=== PATIENT | male | born 1980 | race Caucasian/White ===

== ENCOUNTER 2021-04-05 16:40 | Inpatient (IN) | payer MEDICAID, SELFPAY ==
[2021-04-05] VITALS (9 sets, daily range): BP systolic 134–141; BP diastolic 87–96; PULSE 90–118; RESP 16–18; TEMP 36.4–37.3; O2SAT 93–99; BMI 25.6; BMI 25.3
--- NOTE | 2021-04-05 17:00 | EDS_ITS ---
HPI History of Present Illness Chief Complaint: Substance Abuse Detail of Chief Complaint: Requesting detox from alcohol Informant: patient Narrative Narrative: Patient presents to the emergency department stating that he is an alcoholic and would like to detox from alcohol. Patient states that his last alcoholic drink was around 5 AM. Patient feels shaky and sweaty and has had multiple episodes of vomiting. He denies any abdominal pain. Patient states that his last detox was in [place] about a month ago. Patient denies any illicit drug use. He does use chewing tobacco. Patient otherwise has no medical history. Patient states that he normally drinks about 18-20 drinks per day and it can be liquor or beer. Prior similar symptoms: Yes [facility] Medical History (Updated 04/05/21 @ 18:[address] Lopez English, ) Alcoholism Home Medications NK 04/05/21 [History Last Taken Unknown] Allergy/AdvReac Type Severity Reaction Status Date / Time No Known Allergies Allergy Verified 04/05/21 16:41 Social History Smoking Status: Never smoker ROS [facility] ED Constitutional Constitutional ED: Reports systems reviewed and no addt'l complaints, except as documented; Denies body ache(s), change in weight or chills Eyes Eyes: Denies acute decrease in peripheral vision, change in vision, double vision or loss of vision ENT ENT ED: Reports none; Denies ear pain, lip swelling, loss taste/smell, neck pain, otalgia or sore throat Cardiovascular Cardiovascular: Reports none; Denies abdominal pain, chest pain with activity, leg edema, lightheadedness, palpitations, rapid heart rate or syncope Respiratory/Chest Respiratory/Chest: Reports none; Denies change in mental status, dry cough, dyspnea, hemoptysis, shortness of breath at rest or shortness of breath with exertion Gastrointestinal Gastrointestinal: Reports none, nausea and vomiting; Denies abdominal pain, change in stool character, diarrhea, hematemesis, hematochezia, melena or rectal bleeding Genitourinary Genitourinary ED: Reports none; Denies abdominal discomfort, anuria, dysuria, genital pain or polyuria Musculoskeletal Musculoskeletal: Reports none; Denies arthralgias, back pain, difficulty walking, extremity pain, muscle weakness or myalgias Integumentary Reports none; Denies abscess or rash Neurologic Neurologic: Reports none; Denies abnormal gait, confusion, focal weakness, frequent falls, headache(s), loss of vision, numbness, paresthesias, radicular pain, vertigo or weakness Psychiatric Psychiatric: Reports systems reviewed and no addt'l complaints, except as docum ented and none; Denies behavioral changes, confusion, difficulty concentrating, hallucinations, suicidal ideation, tactile hallucinations or visual hallucinations Endocrine Endocrinology: Denies none, cold intolerance, excessive sweating, fatigue or heat intolerance Hematologic/Lymphatic Hematologic/Lymphatic: Reports none; Denies anemia, easy bleeding or easy bruising Allergic/Immunologic Allergic/Immunologic ED: Denies as per HPI, none, lip swelling, mouth swelling, throat swelling, tongue swelling or hives EXAM Physical Exam Const Vital Signs: 04/05/21 16:42 Temperature 97.6 F L Temperature Source Temporal Pulse Rate 118 H Respiratory Rate 18 Blood Pressure 139/96 H Blood Pressure Mean 110 Pulse Ox 93 Oxygen Delivery Method Room Air Positive well nourished and well developed General Appearance ED: well developed and NAD HEENT Reports TM's clear and moist mucous membranes normocephalic and atraumatic; Negative for trauma or tenderness Tympanic Membrane ED: Yes TM's clear Eyes PERRL and EOMs intact bilaterally General Eye ED: Negative for pale conjunctiva or scleral icterus Neck no lymphadenopathy, supple and no JVD General: Negative for tenderness Chest Wall inspection of chest normal and palpation of chest normal Chest: Negative for tenderness Resp normal respiratory effort and clear to auscultation bilaterally Effort and Inspection: Negative for respiratory distress or pain with movement Auscultation: Negative for rhonchi, wheezes or diminished lung sounds Cardio regular rhythm, S1 normal heart sound, S2 normal heart sound and no murmurs Rate: tachycardic Peripheral Pulses: pulses 2+ throughout GI normal to inspection, nondistended, normoactive bowel sounds, soft to palpation, non-tender, non-distended and no masses Back/Spine no CVA tenderness and no thoracic nor lumbar tenderness Extremity normal to inspection General Extremety ED: Negative for edema General Extremity: Negative for edema Neuro oriented x3, CN's II-XII intact bilaterally, no sensory deficits noted and gait normal Sensorium / Orientation: awake, alert, oriented to person, oriented to place and oriented to time Motor Exam: strength 5/5 throughout and strength abnormal Psych mental status grossly normal Skin no rashes or lesions noted and no wounds MDM MDM MDM Narrative Medical decision making narrative: Patient will be discussed with hospitalist evaluate for admission for alcohol withdrawal and for alcohol detox. Lab Data Attestation: I reviewed the patient's lab results. Labs: Laboratory Results - last 24 hr 04/05/21 04/05/21 04/05/21 17:30 17:30 17:30 WBC 16.3 H RBC 4.99 Hgb 15.5 Hct 43.5 MCV 87.2 MCH 31.1 MCHC 35.6 RDW Std Deviation 45.3 H RDW Coeff of Miguel 14.6 Plt Count 268 MPV 10.4 Immature Gran % (Auto) 0.600 Neut % (Auto) 78.4 H Lymph % (Auto) 10.5 L [place] % (Auto) 9.9 Eos % (Auto) 0.2 Baso % (Auto) 0.4 Absolute Neuts (auto) 12.8 H Absolute Lymphs (auto) 1.72 Nucleated RBC % 0 Differential Comment SCANNED Diff Path Review May foll Sodium 134 L Potassium 4.0 Chloride 96 L Carbon Dioxide 29.0 Anion Gap 9 BUN 14 Creatinine 1.03 Estim Creat Clear Calc 87.75 Est GFR (MDRD) Af Amer 104 Est GFR (MDRD) Non-Af 86 BUN/Creatinine Ratio 13.6 Glucose 97 Calcium 8.9 Total Bilirubin 2.50 H AST 17 ALT 26 Alkaline Phosphatase 60 Total Protein 7.3 Albumin 4.1 Globulin 3.2 Albumin/Globulin Ratio 1.3 Ur Drug Screen Comment Ethyl Alcohol < 3.0 04/05/21 17:55 WBC RBC Hgb Hct MCV MCH MCHC RDW Std Deviation RDW Coeff of Miguel Plt Count MPV Immature Gran % (Auto) Neut % (Auto) Lymph % (Auto) [place] % (Auto) Eos % (Auto) Baso % (Auto) Absolute Neuts (auto) Absolute Lymphs (auto) Nucleated RBC % Differential Comment Diff Path Review Sodium Potassium Chloride Carbon Dioxide Anion Gap BUN Creatinine Estim Creat Clear Calc Est GFR (MDRD) Af Amer Est GFR (MDRD) Non-Af BUN/Creatinine Ratio Glucose Calcium Total Bilirubin AST ALT Alkaline Phosphatase Total Protein Albumin Globulin Albumin/Globulin Ratio Ur Drug Screen Comment Ethyl Alcohol Discharge Plan Triage Chief Complaint: Substance Abuse ED Provider: Ungur,Remus Dx/Rx/DC Orders Clinical Impression: Alcohol withdrawal, Withdrawn from alcohol detoxification program Prescriptions: No Action NK RF: 0 Primary Care Provider: Care Physician,No Primary Referrals: Care Physician,No Primary [Primary Care Provider] - Disposition Disposition: Acute Care Hospital [facility]
[2021-04-05] MEDS: 0.9% Normal Saline 1,000 ML 1000 ML IV (17:28)
[2021-04-05] MEDS: Ondansetron 4 MG/2 ML Vial IV ×2 (17:28→20:16)
[2021-04-05] MEDS: chlordiazePOXIDE 25 MG Capsule PO (17:39)
[2021-04-05 18:05] LABS: ALB/GLOB Ratio 1.3 RATIO (0.9-2.4); AST(SGOT) 17 U/L (15-37); Alanine Aminotransfer ALT/SGPT 26 U/L (16-61); Albumin, Serum 4.1 g/dL (3.2-5.0); Alkaline Phosphatase 60 U/L (45-117); Anion Gap 9 (5-15); BUN 14 mg/dL (7-18); BUN/Creat Ratio 13.6 RATIO (10-20); Calcium,Total 8.9 mg/dL (8.5-10.1); Chloride 96 mmol/L (98-107); Creatinine, Serum 1.03 mg/dL (0.70-1.30); EST Glomerular Filtration Rate 86 mL/min (>60); Est Glom Filt Rate - Afr Amer 104 mL/min (>60); Estimated Creatinine Clearance 87.75 ml/min; Globulin 3.2 g/dL (2.2-4.2); Glucose 97 mg/dL (74-106); Protein, Total 7.3 g/dL (6.4-8.2); Sodium Level 134 mmol/L (136-145)
[2021-04-05 18:10] LABS: Absolute Lymphocyte Count 1.72 X10^3/uL (0.83-4.51); Absolute Neutrophil Count 12.8 X10^3/uL (2.0-7.7); Basophil# 0.06 X10^3/uL; Basophil% 0.4 % (0-1); Eosinophil# 0.04 X10^3/uL; Eosinophils% 0.2 % (0-5); Hematocrit 43.5 % (40-54); Hemoglobin 15.5 g/dL (13.0-16.5); Lymphocyte # 1.72 X10^3/ul (0.83-4.51); Lymphocyte % 10.5 % (19-41); Mean Corp Hgb Conc 35.6 g/dL (32-36); Mean Corpuscular Hgb 31.1 pg (27.0-32.0); Mean Corpuscular Volume 87.2 fL (80-94); Mean Platelet Vol. 10.4 fl (6.2-12.0); Monocyte# 1.61 X10^3/uL; Monocyte% 9.9 % (0-10); NRBC Flagged by Analyzer 0 % (0-5); Neutrophil # 12.79 X10^3/uL (2.7-7.7); Neutrophil % 78.4 % (47-70); POSITIVE DIFFERENTIAL YES; Platelet Count 268 K/mm3 (150-450); RBC Distribution Width CV 14.6 % (11.6-14.6); RBC Distribution Width SD 45.3 fl (35.1-43.9); Red Blood Count 4.99 M/mm3 (4.6-6.2); White Blood Count 16.3 K/mm3 (4.4-11.0)
[2021-04-05 18:12] LABS: Differential Indicated SCAN CRITERIA MET
[2021-04-05 18:17] LABS: Alcohol, Blood (Medical)-Serum < 3.0 mg/dL
[2021-04-05 18:36] LABS: Differential Comment SCANNED
[2021-04-05 18:52] LABS: Amphetamine Urine VISTA NEGATIVE (<1000 ng/mL); Barbiturate Urine VISTA POSITIVE (< 200 ng/mL); Benzodiazepine Urine VISTA NEGATIVE (< 200 ng/mL); Cocaine Urine VISTA NEGATIVE (< 300 ng/mL); Ecstacy Urine VISTA NEGATIVE (< 500 ng/mL); Methadone Urine VISTA NEGATIVE (< 300 ng/mL); PCP Urine VISTA NEGATIVE (< 25 ng/mL); THC Urine VISTA NEGATIVE (< 50 ng/mL); Vista UDS pH Range 7
[2021-04-05] MEDS: Phenobarbital 32.4 MG Tablet 64.8 MG PO ×2 (20:13→23:30)
[2021-04-05] MEDS: Gabapentin 300 MG Capsule PO (20:13)
[2021-04-05] MEDS: Dicyclomine 10 MG Capsule 20 MG PO (20:13)
[2021-04-05] MEDS: Lactated Ringers 1,000 ML 75 ML IV (20:21)
--- NOTE | 2021-04-05 21:11 | PCM.HP.STD ---
HPI - General General Date of Admission: 04/05/21 HPI Narrative BARBARA HORTON, is a 40 M who presented to the emergency department [facility] on 04/05/2021 with a chief complaint of acute alcohol withdrawal. Per discussion with the patient he states that he has been through detox several times with the most recent time being at one of the [facility] a week or 2 ago. He states he typically drinks 18 drinks per day, volume was unspecified. He reports that any type of alcohol that is available this his drink of choice. His last drink was this morning at 5 AM. He is currently experiencing tremor, diaphoresis, and has had several episodes of vomiting. He denies any other illicit drug use. He does report utilization of chewing tobacco of approximately 1 can/day. He was mildly hypertensive and tachycardic in the emergency department but his vitals were otherwise stable. He had a mild white count elevation at 16.3. His BMP showed mild hyponatremia at 134 and mild hypochloremia at 96. His total bilirubin was elevated at 2.50 but his LFTs were within normal limits including his alkaline phosphatase. His alcohol level was negative. And his tox screen was positive for barbiturates. He does indicate he was detoxed with phenobarbital at his last admission. [facility] Medical History (Updated 04/05/21 @ 21:[address] Piper Malik DO) Alcohol abuse Alcoholism Anxiety Depression Kidney stones Home Medications NK 04/05/21 [History Last Taken Unknown] Allergy/AdvReac Type Severity Reaction Status Date / Time No Known Allergies Allergy Verified 04/05/21 16:41 Social History Smoking Status: Never smoker ROS Review of Systems ROS Unobtainable: Denies due to encephalopathy, due to endotracheal tube, due to mental condition, due to mental status or other Constitutional Constitutional: Denies anorexia, change in weight, chills, fatigue, fever(s), malaise, night sweats, weakness or other Eyes Eyes: Denies blurry vision, change in eye color, change in vision, discharge from eye(s), double vision, erythema, eye pain, loss of vision or other ENT HEENT: Denies abnormal hearing, dysphagia, ear pain, epistaxis, headache(s), hearing loss, nasal congestion, nasal discharge, post nasal drip, sinus pressure, sore throat or other Cardiovascular Cardiovascular: Reports rapid heart rate; Denies chest pain, claudication, dyspnea on exertion, edema, lightheadedness, orthopnea, palpitations, paroxysmal nocturnal dyspnea, syncope or other Respiratory/Chest Respiratory/Chest: Denies cough, dyspnea, excessive phlegm production, hemoptysis, productive cough, shortness of breath at rest, shortness of breath with exertion, wheezing or other Gastrointestinal Gastrointestinal: Reports nausea and vomiting; Denies abdominal pain, coffee ground emesis, constipation, diarrhea, dyspepsia, hematemesis, hematochezia, loose stools, melena or other Genitourinary Genitourinary: Denies burning urination, difficulty urinating, dysuria, hematuria, nocturia, urinary frequency, urinary hesitancy, urinary incontinence, urinary urgency or other Musculoskeletal Musculoskeletal: Denies arthralgias, back pain, joint pain, joint stiffness, joint swelling, myalgias, neck pain or other Neurologic Neurologic: Reports tremor(s); Denies abnormal gait, abnormal speech, confusion, disequilibrium, dizziness, focal weakness, headache(s), numbness, paresthesias, seizure-like activity, seizures, syncope, tingling or other Psychiatric Psychiatric: Reports anxiety and depression; Denies homicidal ideation or suicidal ideation Endocrine Endocrinology: Denies change in body appearance, cold intolerance, excessive sweating, heat intolerance, polydipsia, polyuria or other Hematologic/Lymphatic Hematologic/Lymphatic: Denies anemia, easy bleeding, easy bruising, lymphadenopathy or other Allergic/Immunologic Allergic/Immunologic: Denies rhinitis, hives, eczemia, asthma or other Vital Signs Vital Signs Vital Signs: 04/05/21 16:42 04/05/21 18:54 04/05/21 19:53 Temperature 97.6 F L 98.9 F Temperature Source Temporal Oral Pulse Rate 118 H 94 111 H Respiratory Rate 18 16 16 Respiratory Effort Respiratory Depth Respiratory Pattern Blood Pressure 139/96 H 134/87 H 135/95 H Blood Pressure Mean 110 102 108 Blood Pressure Source Monitor Blood Pressure Position Sitting Blood Pressure Location Right Arm Pulse Ox 93 99 97 Oxygen Delivery Method Room Air Room Air 04/05/21 20:03 04/05/21 20:30 04/05/21 20:40 Temperature 98.9 F 98.9 F Temperature Source Oral Oral Pulse Rate 111 H 111 H 111 H Respiratory Rate 16 16 16 Respiratory Effort Normal Non-Labored Respiratory Depth Normal Respiratory Pattern Normal Blood Pressure 135/95 H 135/95 H Blood Pressure Mean 108 108 Blood Pressure Source Monitor Monitor Blood Pressure Position Sitting Sitting Blood Pressure Location Right Arm Right Arm Pulse Ox 97 97 97 Oxygen Delivery Method Room Air Room Air Room Air Physical Exam Const alert, oriented x3, no apparent distress, average body habitus, healthy appearing and well nourished General Appearance: cooperative; Negative for uncooperative Orientation / Consciousness: Negative for confused, disoriented or lethargic HEENT normocephalic, head/scalp atraumatic, hearing grossly normal bilaterally and oropharynx normal; Negative for moist oral mucous membranes HEENT Narrative: Dry mucous membranes Mouth: moist mucous membranes abnormal Eyes Negative for PERRL, EOMs intact bilaterally or conjunctivae normal Neck No no lymphadenopathy, No supple, No no JVD and No no carotid bruits Resp normal respiratory effort, no retractions, no use of accessory muscles and clear to auscultation bilaterally Auscultation: Negative for crackles, rales, rhonchi or wheezes Cardio regular rhythm, S1 normal heart sound, S2 normal heart sound, no murmurs, no rub, no gallops, no clicks and no JVD Cardio Narrative: Tachycardia-mild GI normal to inspection, nondistended, normoactive bowel sounds, soft to palpation, non-tender and non-distended; Negative for hepatosplenomegaly Auscultation: Negative for hyperactive bowel sounds or hypoactive bowel sounds Palpation: Negative for tender, guarding or hernia Extremity normal to inspection and no clubbing, cyanosis or edema Peripheral Pulses: Yes pulses 2+ throughout Skin no rashes or lesions noted Neuro oriented x3 and CN's II-XII intact bilaterally Neuro Narrative: Mild tremor Sensorium / Orientation: awake, alert, oriented to person, oriented to place and oriented to time Speech: speech normal Psych affect normal Mood & Affect: anxious; Negative for depressed Lab / Micro Data Attestation: I reviewed the patient's lab results. Result Diagrams: 04/05/21 17:30 04/05/21 17:30 Labs: Laboratory Results - last 24 hr 04/05/21 04/05/21 04/05/21 17:30 17:30 17:30 WBC 16.3 H RBC 4.99 Hgb 15.5 Hct 43.5 MCV 87.2 MCH 31.1 MCHC 35.6 RDW Std Deviation 45.3 H RDW Coeff of Miguel 14.6 Plt Count 268 MPV 10.4 Immature Gran % (Auto) 0.600 Neut % (Auto) 78.4 H Lymph % (Auto) 10.5 L [place] % (Auto) 9.9 Eos % (Auto) 0.2 Baso % (Auto) 0.4 Absolute Neuts (auto) 12.8 H Absolute Lymphs (auto) 1.72 Nucleated RBC % 0 Differential Comment SCANNED Diff Path Review May foll Sodium 134 L Potassium 4.0 Chloride 96 L Carbon Dioxide 29.0 Anion Gap 9 BUN 14 Creatinine 1.03 Estim Creat Clear Calc 87.75 Est GFR (MDRD) Af Amer 104 Est GFR (MDRD) Non-Af 86 BUN/Creatinine Ratio 13.6 Glucose 97 Calcium 8.9 Total Bilirubin 2.50 H AST 17 ALT 26 Alkaline Phosphatase 60 Total Protein 7.3 Albumin 4.1 Globulin 3.2 Albumin/Globulin Ratio 1.3 Urine Opiates Screen Urine Methadone Screen Ur Barbiturates Screen Ur Phencyclidine Scrn Ur Amphetamines Screen U Methamphetamin-MDMA U Benzodiazepines Scrn Urine Cocaine Screen U Cannabinoids Screen Ur Drug Screen Comment Ethyl Alcohol < 3.0 04/05/21 17:55 WBC RBC Hgb Hct MCV MCH MCHC RDW Std Deviation RDW Coeff of Miguel Plt Count MPV Immature Gran % (Auto) Neut % (Auto) Lymph % (Auto) [place] % (Auto) Eos % (Auto) Baso % (Auto) Absolute Neuts (auto) Absolute Lymphs (auto) Nucleated RBC % Differential Comment Diff Path Review Sodium Potassium Chloride Carbon Dioxide Anion Gap BUN Creatinine Estim Creat Clear Calc Est GFR (MDRD) Af Amer Est GFR (MDRD) Non-Af BUN/Creatinine Ratio Glucose Calcium Total Bilirubin AST ALT Alkaline Phosphatase Total Protein Albumin Globulin Albumin/Globulin Ratio Urine Opiates Screen NEGATIVE Urine Methadone Screen NEGATIVE Ur Barbiturates Screen POSITIVE H Ur Phencyclidine Scrn NEGATIVE Ur Amphetamines Screen NEGATIVE U Methamphetamin-MDMA NEGATIVE U Benzodiazepines Scrn NEGATIVE Urine Cocaine Screen NEGATIVE U Cannabinoids Screen NEGATIVE Ur Drug Screen Comment Ethyl Alcohol Assessment & Plan Assessment/Plan (1) Alcohol withdrawal: (2) Hyperbilirubinemia: (3) Hyponatremia: (4) Tobacco abuse: (5) Leukocytosis: (6) Anxiety: PLAN: Acute alcohol withdrawal -Phenobarb taper -Supportive medications -Thiamine and folate -LR at 75 cc/h x 1 bag -Consult 180 Hyperbilirubinemia -mild -Suspect related to alcohol abuse -Repeat in a.m. Leukocytosis -Suspect reactive -Repeat CBC in a.m. Hyponatremia -Appears to be hypovolemic hyponatremia given nausea and vomiting -IV fluids -BMP in a.m. Depression/anxiety -Patient is not on any chronic medications for this -Follow-up with counseling/psychiatry as an outpatient -Suspect patient is self-medicating with alcohol Tobacco abuse -Patient use chewing tobacco-> approximately 1 can/day -Patient denies needs for supplementation DVT prophylaxis -Low risk -Early ambulation protocol CODE STATUS -Full code Visit Charges Inpatient E&M: 17522 Init Hosp L2
[2021-04-05] MEDS: LORazepam 1 MG Tablet 2 MG PO (23:49)
[2021-04-06] VITALS (13 sets, daily range): BP systolic 117–147; BP diastolic 79–98; PULSE 71–107; RESP 16–18; TEMP 36.6–37.5; O2SAT 96–100
[2021-04-06] MEDS: traZODone 50 MG Tablet PO (00:04)
[2021-04-06] MEDS: Acetaminophen 500 MG Tablet PO ×2 (00:04→07:13)
[2021-04-06 06:50] LABS: Basophil# 0.04 X10^3/uL; Basophil% 0.6 % (0-1); Eosinophil# 0.12 X10^3/uL; Eosinophils% 1.7 % (0-5); Hematocrit 39.3 % (40-54); Hemoglobin 13.7 g/dL (13.0-16.5); Lymphocyte % 28.9 % (19-41); Mean Corp Hgb Conc 34.9 g/dL (32-36); Mean Corpuscular Hgb 31.3 pg (27.0-32.0); Mean Corpuscular Volume 89.7 fL (80-94); Mean Platelet Vol. 10.7 fl (6.2-12.0); Monocyte# 0.75 X10^3/uL; Monocyte% 10.9 % (0-10); NRBC Flagged by Analyzer 0 % (0-5); Neutrophil # 3.97 X10^3/uL (2.7-7.7); Neutrophil % 57.5 % (47-70); Platelet Count 186 K/mm3 (150-450); RBC Distribution Width CV 14.7 % (11.6-14.6); RBC Distribution Width SD 47.7 fl (35.1-43.9); Red Blood Count 4.38 M/mm3 (4.6-6.2); White Blood Count 6.9 K/mm3 (4.4-11.0)
[2021-04-06] MEDS: Phenobarbital 32.4 MG Tablet 64.8 MG PO ×4 (07:10→19:15)
[2021-04-06] MEDS: Thiamine Hydrochloride 100 MG Tablet PO (07:33)
[2021-04-06] MEDS: Folic Acid 1 MG Tablet PO (07:33)
--- NOTE | 2021-04-06 10:49 | NURSING ---
Discussed with pt the possible options. Tearful and desiring help.
--- NOTE | 2021-04-06 11:09 | PN.HOSP_ITS ---
Subjective Subjective Patient admitted with alcohol withdrawal. He drinks 18; 12 ounces bottle of beer along with liquor and wine. He also uses parts every 2 years just to know it is feeling. Patient states he had 10 times hematemesis and was told from esophageal/gastric origin. He had EGD about 5 years ago and subjectively speaks no varices found. He denies ascites, jaundice, hepatic encephalopathy or other chronic stigmata of liver disease Objective Data Objective Data Vital Signs: Vital Signs Temp Pulse Resp BP Pulse Ox 99.0 F 107 H 18 130/85 H 97 04/06/21 10:00 04/06/21 10:00 04/06/21 10:00 04/06/21 10:00 04/06/21 10:00 Oxygen Delivery Method Room Air Weight: 157 lb 10.088 oz Body Mass Index (BMI) 25.3 Intake & Output: Intake and Output for Last 24 Hours 04/04/21 04/05/21 04/06/21 23:59 23:59 23:59 Intake Total 1200 / 1200 1148.75 / 1148.75 Balance 1200 / 1200 1148.75 / 1148.75 Lab / Micro Data Result Diagrams: 04/06/21 05:46 04/05/21 17:30 Labs: Laboratory Results - last 24 hr 04/05/21 04/05/21 04/05/21 17:30 17:30 17:30 WBC 16.3 H RBC 4.99 Hgb 15.5 Hct 43.5 MCV 87.2 MCH 31.1 MCHC 35.6 RDW Std Deviation 45.3 H RDW Coeff of Miguel 14.6 Plt Count 268 MPV 10.4 Immature Gran % (Auto) 0.600 Neut % (Auto) 78.4 H Lymph % (Auto) 10.5 L [place] % (Auto) 9.9 Eos % (Auto) 0.2 Baso % (Auto) 0.4 Absolute Neuts (auto) 12.8 H Absolute Lymphs (auto) 1.72 Nucleated RBC % 0 Differential Comment SCANNED Diff Path Review May foll Sodium 134 L Potassium 4.0 Chloride 96 L Carbon Dioxide 29.0 Anion Gap 9 BUN 14 Creatinine 1.03 Estim Creat Clear Calc 87.75 Est GFR (MDRD) Af Amer 104 Est GFR (MDRD) Non-Af 86 BUN/Creatinine Ratio 13.6 Glucose 97 Calcium 8.9 Total Bilirubin 2.50 H AST 17 ALT 26 Alkaline Phosphatase 60 Total Protein 7.3 Albumin 4.1 Globulin 3.2 Albumin/Globulin Ratio 1.3 Urine Opiates Screen Urine Methadone Screen Ur Barbiturates Screen Ur Phencyclidine Scrn Ur Amphetamines Screen U Methamphetamin-MDMA U Benzodiazepines Scrn Urine Cocaine Screen U Cannabinoids Screen Ur Drug Screen Comment Ethyl Alcohol < 3.0 04/05/21 04/06/21 17:55 05:46 WBC 6.9 RBC 4.38 L Hgb 13.7 Hct 39.3 L MCV 89.7 MCH 31.3 MCHC 34.9 RDW Std Deviation 47.7 H RDW Coeff of Miguel 14.7 H Plt Count 186 MPV 10.7 Immature Gran % (Auto) 0.400 Neut % (Auto) 57.5 Lymph % (Auto) 28.9 [place] % (Auto) 10.9 H Eos % (Auto) 1.7 Baso % (Auto) 0.6 Absolute Neuts (auto) 4.0 Absolute Lymphs (auto) 2.00 Nucleated RBC % 0 Differential Comment Diff Path Review Sodium Potassium Chloride Carbon Dioxide Anion Gap BUN Creatinine Estim Creat Clear Calc Est GFR (MDRD) Af Amer Est GFR (MDRD) Non-Af BUN/Creatinine Ratio Glucose Calcium Total Bilirubin AST ALT Alkaline Phosphatase Total Protein Albumin Globulin Albumin/Globulin Ratio Urine Opiates Screen NEGATIVE Urine Methadone Screen NEGATIVE Ur Barbiturates Screen POSITIVE H Ur Phencyclidine Scrn NEGATIVE Ur Amphetamines Screen NEGATIVE U Methamphetamin-MDMA NEGATIVE U Benzodiazepines Scrn NEGATIVE Urine Cocaine Screen NEGATIVE U Cannabinoids Screen NEGATIVE Ur Drug Screen Comment Ethyl Alcohol Physical Exam Narrative General: Alert, Oriented x3, Cooperative HEENT: Atraumatic, PERRLA, EOMI, Normocephalic Oral: No Gingival or Mucosal Lesions/ Ulcerations Neck: Supple, No JVD, Negative Carotid Bruits Lungs: Air entry equal in bilateral lung bases. No crepitation/rhonchi Cardiovascular: Regular rate, Regular Rhythm, Normal S1, Normal S2, No murmurs Abdomen: Bowel Sounds Present, Soft, Non Tender, Non-Distended. Liver not enlarged. Spleen not palpable. No ascites on exam : No renal angle tenderness. No suprapubic tenderness. Extremities: No edema, Capillary Refill Less than 3 Seconds Skin: No rashes, No breakdown Musculoskeletal: No Tenderness to Palpation of Joints or Extremities Neurological: Cranial nerves II-XII grossly intact, Deep Tendon Reflexes 2+/4 and Symmetrical, Neuro grossly intact Psych/Mental Status: Normal Affect, Appropriate. Assessment & Plan Assessment/Plan (1) Alcohol withdrawal: (2) Hyperbilirubinemia: (3) Hyponatremia: (4) Tobacco abuse: (5) Leukocytosis: (6) Anxiety: PLAN: 1. Acute alcohol withdrawal: Patient is admitted to [facility] floor. On phenobarbital protocol along with other supportive medications. Thiamine and folic acid. Patient completed 1 L of R[place] lactate. Monitor is being consulted. 2. Chronic alcohol use and tolerance since age of 16 with hyperbilirubinemia: Total bili is 2.5. Monitor liver function and GGT tomorrow a.m. right upper quadrant sonogram ordered for tomorrow a.m. 3. Leukocytosis: Reactive. Repeat CBC shows normal WBC count. 4. Hyponatremia: Multifactorial probably from hypovolemic, hypotonic from nausea and vomiting, low solute intake of chronic alcohol use, beer portomania. 5. Depression/anxiety: Patient not on antidepression medication. 6. Chronic chewing tobacco use and marijuana use: Advised cessation. VT prophylaxis: Low risk early ambulation encouraged. Visit Charges Inpatient E&M: 87166 Subs Hosp L2
[2021-04-06] MEDS: Gabapentin 300 MG Capsule PO (11:37)
[2021-04-06] MEDS: LORazepam 1 MG Tablet 2 MG PO ×2 (14:07→20:28)
[2021-04-07] VITALS (10 sets, daily range): BP systolic 114–135; BP diastolic 72–98; PULSE 66–104; RESP 18–20; TEMP 36.5–37.3; O2SAT 97–100
[2021-04-07] MEDS: Phenobarbital 32.4 MG Tablet 64.8 MG PO ×7 (00:09→23:57)
[2021-04-07] MEDS: traZODone 50 MG Tablet PO ×2 (00:09→23:57)
[2021-04-07] MEDS: Gabapentin 300 MG Capsule PO ×2 (00:09→17:11)
--- NOTE | 2021-04-07 05:55 | US_ITS ---
STUDY: ABDOMINAL ULTRASOUND - RIGHT UPPER QUADRANT REASON FOR VISIT: Male, 40 years old Alcoholic hepatitis with total bilirubin 2.5 TECHNIQUE: Ultrasound evaluation of the right upper quadrant was performed with real-time and static agosto-scale imaging. TECHNICAL QUALITY: Adequate. COMPARISON: None. FINDINGS: Liver: The liver measures 15.2 cm. There is normal echogenicity of the liver. The bile ducts are within normal limits. There is hepatic color flow. The direction of portal flow is hepatopetal. There is no demonstrated mass lesion. Gallbladder: Normal distended gallbladder. The gallbladder wall measures 2.0 mm. There is a negative sonographic Moreno''s sign. There is no pericholecystic fluid. There are multiple echogenic structures within the gallbladder, consistent with multiple gallstones. Common Bile Duct (C.B.D.): The common bile duct measures 4 mm. Pancreas: Normal size of the head, body of the pancreas. The tail portion is obscured due to overlying bowel gas. There is increased echogenicity of the pancreas. There is no demonstrated pancreatic mass or cyst. Right Kidney: Normal size of the right kidney. The right kidney measures 11 cm x 6.2 cm x 4.6 cm. Normal renal cortex. The right cortex measures 1.2 cm. There is no demonstrated renal mass or cyst. There is no right hydronephrosis. US/Liver IMPRESSION: Multiple gallstones. Electronically Signed: Sidney Biswas MD at 12:32 EDT , Service support ,
[2021-04-07 06:34] LABS: AST(SGOT) 15 U/L (15-37); Alanine Aminotransfer ALT/SGPT 21 U/L (16-61); Albumin, Serum 3.2 g/dL (3.2-5.0); Alkaline Phosphatase 59 U/L (45-117); Anion Gap 6 (5-15); BUN 16 mg/dL (7-18); BUN/Creat Ratio 21.7 RATIO (10-20); Bilirubin, Direct 0.43 mg/dL (0.00-0.30); Chloride 103 mmol/L (98-107); Creatinine, Serum 0.74 mg/dL (0.70-1.30); EST Glomerular Filtration Rate 125 mL/min (>60); Est Glom Filt Rate - Afr Amer 152 mL/min (>60); Estimated Creatinine Clearance 122.14 ml/min; GGTP 72 U/L (15-85); Globulin 2.6 g/dL (2.2-4.2); Glucose 90 mg/dL (74-106); Potassium 4.4 mmol/L (3.5-5.1); Protein, Total 5.8 g/dL (6.4-8.2); Sodium Level 137 mmol/L (136-145)
[2021-04-07] MEDS: Folic Acid 1 MG Tablet PO (10:18)
[2021-04-07] MEDS: Thiamine Hydrochloride 100 MG Tablet PO (10:18)
--- NOTE | 2021-04-07 11:17 | ADDICTION ---
This editorial writer met with PT to conduct ASAM, MSE, AUDIT assessments and to plan for d/c. All assessments completed, faxed to [facility] and placed in PT's chart. D/C planning not completed as PT requested time to think about his options. This editorial writer will f/u with PT to finalize d/c plan on 04/06/21. PT amiable.
--- NOTE | 2021-04-07 11:50 | CASEMGMT ---
Social Work Note Pt is listed as self-pay. MARICRUZ spoke with Daysi from [facility], pt is not able to use funds for detox as pt is not a resident of [facility]. SW in to speak with pt. MARICRUZ introduced self and role at [facility]. Pt confirms that he currently doesn't have insurance. Pt states he was working for a company and then that insurance lapse, the company got new insurance but he no longer works for that company. 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 Pt states he thought about applying for Medicaid but hasn't yet. Pt denied any financial concerns at this time. MARICRUZ provided pt with Medicaid Application and contact information for [facility] so pt is able to contact them regarding Medicaid. Pt states he will just drop off the Medicaid Application to [facility]. SW provided pt with additional financial resources including [facility]. Pt states that when he arrived he was told about paying $250 self deposit and his bill would be reduced by 25%. MARICRUZ informed pt that this worker is not aware of that program and the criteria but can see if PFS can speak to pt regarding the program. Pt asked what his final bill would be and this worker informed him that this worker is not sure, there is no way of knowing that and that he will just get a bill once he leaves [facility]. Pt states how is he supposed to get the discount if he leaves [facility] without knowing his bill and without paying. SW again informed pt that this worker doesn't deal with the Self-Deposit program but again informed pt that this worker can ask PFS to speak with pt regarding program again. Pt becoming agitated with this worker, denied wanting to speak to PFS. MARICRUZ updated Malinda with PFS. Malinda Kidd ENVIRONMENTAL MARKETING REPRESENTATIVE, MACHINE SIGN WRITER
--- NOTE | 2021-04-07 12:17 | PCM.PN.HOSP ---
Subjective Subjective Patient is scheduled for right upper quadrant sonogram. No specific complaint. Objective Data Objective Data Vital Signs: Vital Signs Temp Pulse Resp BP Pulse Ox 98.5 F 104 H 20 H 135/98 H 98 04/07/21 10:12 04/07/21 10:24 04/07/21 10:12 04/07/21 10:12 04/07/21 10:12 Oxygen Delivery Method Room Air Weight: 157 lb 10.088 oz Body Mass Index (BMI) 25.3 Intake & Output: Intake and Output for Last 24 Hours 04/05/21 04/06/21 04/07/21 23:59 23:59 23:59 Intake Total 1200 / 1200 1498.75 / 1498.75 500 / 500 Balance 1200 / 1200 1498.75 / 1498.75 500 / 500 Lab / Micro Data Result Diagrams: 04/06/21 05:46 04/07/21 05:34 Labs: Laboratory Results - last 24 hr 04/07/21 05:34 Sodium 137 Potassium 4.4 Chloride 103 Carbon Dioxide 28.0 Anion Gap 6 BUN 16 Creatinine 0.74 Estim Creat Clear Calc 122.14 Est GFR (MDRD) Af Amer 152 Est GFR (MDRD) Non-Af 125 BUN/Creatinine Ratio 21.7 H Glucose 90 Calcium 8.0 L Total Bilirubin 1.40 H Direct Bilirubin 0.43 H GGT 72 AST 15 ALT 21 Alkaline Phosphatase 59 Total Protein 5.8 L Albumin 3.2 Globulin 2.6 Physical Exam Narrative General: Alert, Oriented x3, Cooperative HEENT: Atraumatic, PERRLA, EOMI, Normocephalic Oral: No Gingival or Mucosal Lesions/ Ulcerations Neck: Supple, No JVD, Negative Carotid Bruits Lungs: Air entry equal in bilateral lung bases. No crepitation/rhonchi Cardiovascular: Regular rate, Regular Rhythm, Normal S1, Normal S2, No murmurs Abdomen: Bowel Sounds Present, Soft, Non Tender, Non-Distended. Liver not enlarged. Spleen not palpable. No ascites on exam : No renal angle tenderness. No suprapubic tenderness. Extremities: No edema, Capillary Refill Less than 3 Seconds Skin: No rashes, No breakdown Musculoskeletal: No Tenderness to Palpation of Joints or Extremities Neurological: Cranial nerves II-XII grossly intact, Deep Tendon Reflexes 2+/4 and Symmetrical, Neuro grossly intact Psych/Mental Status: Normal Affect, Appropriate. Const alert, oriented x3, no apparent distress, average body habitus, healthy appearing and well nourished General Appearance: cooperative; Negative for uncooperative Orientation / Consciousness: Negative for confused, disoriented or lethargic HEENT normocephalic, head/scalp atraumatic, hearing grossly normal bilaterally and oropharynx normal; Negative for moist oral mucous membranes Eyes Negative for PERRL, EOMs intact bilaterally or conjunctivae normal Neck No no lymphadenopathy, No supple, No no JVD and No no carotid bruits Resp normal respiratory effort, no retractions, no use of accessory muscles and clear to auscultation bilaterally Auscultation: Negative for crackles, rales, rhonchi or wheezes Cardio regular rhythm, S1 normal heart sound, S2 normal heart sound, no murmurs, no rub, no gallops, no clicks and no JVD Cardio Narrative: Tachycardia-mild GI normal to inspection, nondistended, normoactive bowel sounds, soft to palpation, non-tender and non-distended; Negative for hepatosplenomegaly Auscultation: Negative for hyperactive bowel sounds or hypoactive bowel sounds Palpation: Negative for tender, guarding or hernia Extremity normal to inspection and no clubbing, cyanosis or edema Skin no rashes or lesions noted Neuro oriented x3 and CN's II-XII intact bilaterally Neuro Narrative: Mild tremor Sensorium / Orientation: awake, alert, oriented to person, oriented to place and oriented to time Speech: speech normal Psych affect normal Mood & Affect: anxious; Negative for depressed Assessment & Plan Assessment/Plan (1) Alcohol withdrawal: (2) Hyperbilirubinemia: (3) Hyponatremia: (4) Tobacco abuse: (5) Leukocytosis: (6) Anxiety: PLAN: 1. Acute alcohol withdrawal: Patient is admitted to MedSurg floor. On phenobarbital protocol along with other supportive medications. Thiamine and folic acid. Patient completed 1 L of Ringer lactate. Monitor is being consulted. 2. Chronic alcohol use and tolerance since age of 16 with hyperbilirubinemia: Total bili is 2.5. 04/07: Right upper quadrant sonogram not reported yet. Patient had some blood work probably imaging in [facility] therefore obtain records. Repeat labs shows improvement in total bilirubin. Transaminases normal range. GGT normal. 3. Leukocytosis: Reactive. Repeat CBC shows normal WBC count. 4. Hyponatremia: Multifactorial probably from hypovolemic, hypotonic from nausea and vomiting, low solute intake of chronic alcohol use, beer portomania. 5. Depression/anxiety: Patient not on antidepression medication. 6. Chronic chewing tobacco use and marijuana use: Advised cessation. VT prophylaxis: Low risk early ambulation encouraged. Discharge planning tomorrow with outpatient 180 follow-up Laboratory Results 04/07/21 05:34: Sodium 137, Potassium 4.4, Chloride 103, Carbon Dioxide 28.0, Anion Gap 6, BUN 16, Creatinine 0.74, Estim Creat Clear Calc 122.14, Est GFR (MDRD) Af Amer 152, Est GFR (MDRD) Non-Af 125, BUN/Creatinine Ratio 21.7 H, Glucose 90, Calcium 8.0 L, Total Bilirubin 1.40 H, Direct Bilirubin 0.43 H, GGT 72, AST 15, ALT 21, Alkaline Phosphatase 59, Total Protein 5.8 L, Albumin 3.2, Globulin 2.6 Visit Charges Inpatient E&M: 83322 Subs Hosp L2
[2021-04-07 13:28] LABS: Pathologist Review Reviewed
[2021-04-07] MEDS: hydrOXYzine PAM 25 MG Capsule 50 MG PO (21:52)
[2021-04-07] MEDS: Acetaminophen 500 MG Tablet PO (21:52)
[2021-04-08 03:00] VITALS: PULSE 59
[2021-04-08 03:01] VITALS: BP 106/61; PULSE 57; RESP 18; TEMP 36.6; O2SAT 100
[2021-04-08] MEDS: Phenobarbital 32.4 MG Tablet 64.8 MG PO ×2 (03:04→09:24)
[2021-04-08] MEDS: Thiamine Hydrochloride 100 MG Tablet PO (08:16)
[2021-04-08] MEDS: Folic Acid 1 MG Tablet PO (08:16)
--- NOTE | 2021-04-08 08:52 | ADDICTION ---
This assembly instructions writer met with PT to finalize d/c plan. PT to f/u with Shelbi [facility]ar[facility] for intervention following discharge from [facility]. He will identify transportation and will coordinate admission.
[2021-04-08 09:00] VITALS: BP 106/60; PULSE 78; RESP 18; TEMP 37.2; O2SAT 100
--- NOTE | 2021-04-08 09:34 | PCM.DC ---
Discharge Instructions Diet Discharge Diet: No restrictions Activity Discharge Activity: Return to Normal Activity Dressing / Incision Call your doctor if you observe: Fever of 101 or Higher, Shortness of breath, Dizziness, Fainting spells, Swelling in the ankles, Chest pain and Increased palpitations (irregular heartbeat) Follow Up Care Test Results: Test results from this visit will be discussed in further detail at your follow-up appointment, if applicable. Discharge Plan Admission Admit Date/Time: 04/05/21 19:03 Attending Provider: Gary Oliveros Primary Care Provider: Care Physician,No Primary Instructions Patient Instructions: ED Withdrawal Alcohol Discharge Orders/Prescriptions Prescriptions: No Action NK RF: 0 Referrals / Follow Up: Care Physician,No Primary [Primary Care Provider] - Disposition Disposition (needs filled in before D/C Order can be placed): Home, self care
--- NOTE | 2021-04-08 10:20 | DS.PCM_ITS ---
Providers Date of Admission: 04/05/21 Primary Care Physician: No Primary Care Phys Reason For Visit: ETOH WITHDRAWAL Diagnosis Discharge Diagnosis (1) Alcohol withdrawal: Status: Resolved Code(s): F10.239 - Alcohol dependence with withdrawal, unspecified (2) Hyperbilirubinemia: Status: Acute Code(s): E80.6 - Other disorders of bilirubin metabolism (3) Hyponatremia: Status: Resolved Code(s): E87.1 - Hypo-osmolality and hyponatremia (4) Tobacco abuse: Status: Chronic Code(s): Z72.0 - Tobacco use (5) Leukocytosis: Status: Resolved Code(s): D72.829 - Elevated white blood cell count, unspecified (6) Anxiety: Status: Chronic Code(s): F41.9 - Anxiety disorder, unspecified Medications at Discharge Home Medications NK 04/05/21 Hospital Course Operations None Procedures None Summary of Care Provided Minutes Spent on Discharge: 35 Hospital Course: Per HPI: BARBARA HORTON, is a 40 M who presented to the emerg ency department [facility] on 04/05/2021 with a chief complaint of acute alcohol withdrawal.? Per discussion with the patient he states that he has been through detox several times with the most recent time being at one of the [facility] a week or 2 ago.? He states he typically drinks 18 drinks per day, volume was unspecified.? He reports that any type of alcohol that is available this his drink of choice.? His last drink was this morning at 5 AM.? He is currently experiencing tremor, diaphoresis, and has had several episodes of vomiting.? He denies any other illicit drug use.? He does report utilization of chewing tobacco of approximately 1 can/day.? He was mildly hypertensive and tachycardic in the emergency department but his vitals were otherwise stable.? He had a mild white count elevation at 16.3.? His BMP showed mild hyponatremia at 134 and mild hypochloremia at 96.? His total bilirubin was elevated at 2.50 but his LFTs were within normal limits including his alkaline phosphatase.? His alcohol level was negative.? And his tox screen was positive for barbiturates.? He does indicate he was detoxed with phenobarbital at his last admission. Hospital Course: 1. Acute alcohol withdrawal/leukocytosis/hyponatremia/depression/anxiety/chronic tobacco abuse/[id number]-old male presents to the hospital with acute alcohol withdrawal. He has been drinking since he was 16 and plans on following up in [place] for rehab for his drinking. He did successfully complete 3 days of the alcohol withdrawal protocol and would like to go home today. His hyponatremia resolved as it is leukocytosis without any antibiotics. He was found to have hyperbilirubinemia, and he had a right upper quadrant ultrasound performed despite having no abdominal pain. It was found to have gallstones but his common bile duct was normal. Unfortunately there is no previous LFTs on record therefore I do recommend that he follow-up as an outpatient to make sure that his bilirubin is dropping which had been here in the hospital. I did discu ss cessation of tobacco products with him as well. He did meet with 180 who will assist him in making a transition to [place]. I discussed with him the plan for discharge today and he expressed understanding of the risk and benefits of going home and wants to go home today. Physical Exam Const alert, oriented x3 and no apparent distress General Appearance: cooperative and comfortable HEENT normocephalic and moist oral mucous membranes Eyes PERRL, EOMs intact bilaterally and conjunctivae normal Neck no lymphadenopathy, supple and no JVD Resp normal respiratory effort, no retractions, no use of accessory muscles and clear to auscultation bilaterally Auscultation: Negative for crackles, rales, rhonchi or wheezes Cardio regular rate, regular rhythm, S1 normal heart sound, S2 normal heart sound and no murmurs GI soft to palpation, non-tender and non-distended; Negative for hepatosplenomegaly Extremity no clubbing, cyanosis or edema Skin no rashes or lesions noted Neuro no focal motor deficits and no sensory deficits noted Psych affect normal ABG / Lab / Microbiology Data Result Diagrams: 04/06/21 05:46 04/07/21 05:34 Laboratory: Laboratory Results - last 24 hr 04/05/21 17:30 Diff Path Review Reviewed Radiography Diagnostic Testing: Radiology Impression Liver Ultrasound 04/07/21 05:55 IMPRESSION: Multiple gallstones. Electronically Signed: Sidney Biswas MD at 12:32 EDT , Service support , D/C Instructions Discharge Diet: No restrictions Discharge Activity: Return to Normal Activity Call your doctor if you observe: Fever of 101 or Higher, Shortness of breath, Dizziness, Fainting spells, Swelling in the ankles, Chest pain and Increased palpitations (irregular heartbeat) Meaningful Use Info Meaningful Use Diagnoses (Choose all that apply): None applicable Discharge Plan Admission Admit Date/Time: 04/05/21 19:03 Attending Provider: Gary Oliveros Primary Care Provider: Care Physician,No Primary Instructions Patient Instructions: ED Withdrawal Alcohol Discharge Orders/Prescriptions Prescriptions: No Action NK RF: 0 Referrals / Follow Up: Care Physician,No Primary [Primary Care Provider] - Disposition Disposition (needs filled in before D/C Order can be placed): Home, self care Visit Charges Inpatient E&M: 47324 Disch Hosp
[2021-04-08 11:36] VITALS: BP 106/60; PULSE 78; RESP 18; TEMP 37.2; O2SAT 98
== END 2021-04-08 11:20 | disposition home or self-care (01) | DRG 897 ==
LOC: ED 18:54 → MS3 19:48
PROVIDERS: Internal Medicine; Admitting Provider Internal Medicine; Emergency Provider Emergency Medicine; Referring Provider Internal Medicine; Visit Provider Family Medicine
DX: F10.239 Alcohol dependence with withdrawal, unspecified (principal); E87.1 Hypo-osmolality and hyponatremia; Y90.0 Blood alcohol level of less than 20 mg/100 ml; D72.829 Elevated white blood cell count, unspecified; K80.20 Calculus of gallbladder without cholecystitis without obstruction; F32.9 Major depressive disorder, single episode, unspecified; F41.9 Anxiety disorder, unspecified; F17.220 Nicotine dependence, chewing tobacco, uncomplicated
CPT/HCPCS: 36415; 76705; 80048; 80053; 80076; 80307; 82077; 82977; 85025; 97802; 99251; 99282; J7030; J7120; A4216; G0463; J2405

== ENCOUNTER 2021-04-20 13:41 | Inpatient (IN) | payer MEDICAID, SELFPAY ==
[2021-04-05 19:58] VITALS: BMI 25.3
[2021-04-20 13:42] VITALS: BP 134/93; PULSE 115; RESP 20; TEMP 36.6; O2SAT 93; BMI 25.2
--- NOTE | 2021-04-20 14:03 | EDS_ITS ---
HPI History of Present Illness Chief Complaint: ETOH Intox Detail of Chief Complaint: Requesting detox. Informant: patient Onset/Context/Timing Onset: Month(s) Context: Gradual Onset Timing: Continuous Current Severity: Mild Maximum Severity: Mild Narrative Narrative: 40-year-old male history of alcohol abuse. Denies any other medical problems. Currently on no medications. States is a history of alcoholism. He is requesting inpatient detox. He denies any recent falls or head trauma. St ates that he has drank 2 bottles of wine since 7 AM this morning. Prior similar symptoms: Yes Recent Illness/Hospitalization: Yes PFSH [facility] Medical History (Updated 04/20/21 @ 14:17 by Bar Cee) Alcohol abuse Alcoholism Anxiety Depression Depression Kidney stones Home Medications NK 04/05/21 [History Last Taken Unknown] Allergy/AdvReac Type Severity Reaction Status Date / Time No Known Allergies Allergy Verified 04/05/21 16:41 Social History Smoking Status: Never smoker ROS ROS ED ROS Narrative Patient denies any recent illness. Review of Systems ROS Unobtainable: Denies due to encephalopathy Constitutional Constitutional ED: Denies fever(s) Eyes Eyes: Denies change in vision ENT ENT ED: Denies ear pain or sore throat Cardiovascular Cardiovascular: Denies chest pain Respiratory/Chest Respiratory/Chest: Denies cough or dyspnea Gastrointestinal Gastrointestinal: Denies abdominal pain or vomiting Genitourinary Genitourinary ED: Denies dysuria Musculoskeletal Musculoskeletal: Denies myalgias Integumentary Denies rash Neurologic Neurologic: Denies headache(s) Psychiatric Psychiatric: Denies depression Endocrine Endocrinology: Denies polyuria Hematologic/Lymphatic Hematologic/Lymphatic: Denies easy bruising Allergic/Immunologic Allergic/Immunologic ED: Denies urticaria EXAM Physical Exam Narrative Exam Narrative: Middle-age male no acute distress. Vital signs stable afebrile. Does not look septic or toxic. No distress. Does seem intoxicated. Awake and alert. HEENT exam unremarkable atraumatic. Pupils round reactive light. Moist with memories. Neck nontender. Lungs clear to auscultation bilaterally. Heart regular rhythm rate about 110 no murmur. Chest wall nontender. Abdomen soft nontender normal bowel sounds no peritoneal signs. Back nontender. Patient moving all 4 extremities. Neurovascular intact. Nontender no deformity. Neurologically is awake and alert. He is intoxicated but following commands and answering questions. Const Vital Signs: 04/20/21 13:42 Temperature 97.8 F Temperature Source Temporal Pulse Rate 115 H Respiratory Rate 20 H Blood Pressure 134/93 H Blood Pressure Mean 106 Pulse Ox 93 Oxygen Delivery Method Room Air Positive well nourished and well developed General Appearance ED: well developed HEENT Reports moist mucous membranes atraumatic; Negative for trauma or tenderness Eyes PERRL and EOMs intact bilaterally Neck no lymphadenopathy, supple and no JVD Thyroid: Negative for tender Lymph Lymphatic: no lymphadenopathy noted Chest Wall inspection of chest normal and palpation of chest normal Resp normal respiratory effort and clear to auscultation bilaterally Cardio regular rhythm and no murmurs Rate: tachycardic GI soft to palpation, non-tender, non-distended and no masses Inspection: Negative for abdominal distention Palpation: Negative for tender or guarding Back/Spine no CVA tenderness General Back: Negative for CVA tenderness Extremity General Extremety ED: Negative for edema or tenderness General Extremity: Negative for edema Neuro CN's II-XII intact bilaterally Neuro Narrative: Patient intoxicated. Sensorium / Orientation: alert, oriented to person and oriented to place Psych mental status grossly normal Skin Lesions: no lesions Rashes: no rashes MDM MDM MDM Narrative Medical decision making narrative: Patient has a history of alcohol abuse. Clinically intoxicated. Requesting inpatient admission for detox. Hospitalist on page. Hospitalist requested screening labs. Patient also be given a liter of normal saline. Discharge Plan Dx/Rx/DC Orders Clinical Impression: Acute alcohol intoxication, Admitted to alcohol detoxification center Disposition Disposition: Acute Care Hospital [facility]
--- NOTE | 2021-04-20 14:28 | NURSING ---
307 WHITE DETOX, INTOXICATED, ALCOHOLISM
[2021-04-20 14:33] LABS: Absolute Lymphocyte Count 3.55 X10^3/uL (0.83-4.51); Absolute Neutrophil Count 9.8 X10^3/uL (2.0-7.7); Basophil# 0.07 X10^3/uL; Basophil% 0.5 % (0-1); Eosinophil# 0.03 X10^3/uL; Eosinophils% 0.2 % (0-5); Hematocrit 48.4 % (40-54); Hemoglobin 17.2 g/dL (13.0-16.5); Lymphocyte # 3.55 X10^3/ul (0.83-4.51); Lymphocyte % 23.2 % (19-41); Mean Corp Hgb Conc 35.5 g/dL (32-36); Mean Corpuscular Hgb 31.4 pg (27.0-32.0); Mean Corpuscular Volume 88.3 fL (80-94); Mean Platelet Vol. 9.8 fl (6.2-12.0); Monocyte% 11.8 % (0-10); NRBC Flagged by Analyzer 0 % (0-5); Neutrophil # 9.79 X10^3/uL (2.7-7.7); POSITIVE DIFFERENTIAL YES; Platelet Count 559 K/mm3 (150-450); RBC Distribution Width CV 14.8 % (11.6-14.6); RBC Distribution Width SD 47.3 fl (35.1-43.9); Red Blood Count 5.48 M/mm3 (4.6-6.2); White Blood Count 15.3 K/mm3 (4.4-11.0)
[2021-04-20 14:34] LABS: Differential Indicated SCAN CRITERIA MET
[2021-04-20] MEDS: 0.9% Normal Saline 1,000 ML 999 ML IV (14:37)
[2021-04-20] MEDS: Ondansetron 4 MG/2 ML Vial IV (14:37)
--- NOTE | 2021-04-20 14:38 | HP.PCM.HOS_ITS ---
HPI - General General Date of Admission: 04/20/21 Date of Service: 04/20/21 Chief Complaint: EtOH abuse, requesting withdrawal HPI Narrative The patient is a 40 y/o F w/ PMHx: Anxiety and Depression taking himself off his regimen ~ 5 months prior noting he did not like the way it made him feel, notes he felt artificial, Hx Chew tobacco (prior 1 can routinely, no use x 2 weeks), EtOH abuse with binge days to weeks with up to 20-25 drinks daily of various types including beer, wine, hard liquor who presents to the [facility] on 04/20/21 w/ no garrick acute EtOH withdrawal, onset starting this afternoon following last EtOH intake 2 bottles of wine in the AM with onset of nausea, tremors, agitation, tactile disturbances. In the ED patient is up and moving frequently. Patient interested in attaining sober status. Work-up in the ED included T 97.8, heart rate 115, BP 134/93, respiratory rate 20, 93% on room air, CBC, CMP pending upon evaluation as well as UDS and ethyl alcohol level. [facility] Medical History (Updated 04/20/21 @ 14:[address] Larisa Marcelino MD) Alcohol abuse Alcoholism Anxiety Depression Depression Kidney stones Home Medications NK 04/05/21 [History Last Taken Unknown] Allergy/AdvReac Type Severity Reaction Status Date / Time No Known Allergies Allergy Verified 04/05/21 16:41 Family History (Updated 04/20/21 @ 14:[address] Larisa Marcelino MD) Mother Hypertension Alcoholism Father Cancer Father with history of squamous and melanoma, prostate CA. Surgical History (Updated 04/20/21 @ 14:[address] Larisa Marcelino MD) Hx of adenoidectomy Social History (Updated 04/20/21 @ 14:[address] Larisa Marcelino MD) household members: none Smokeless tobacco user: chewing tobacco alcohol intake: current details: EtOH abuse history with binge periods of 20-25 drinks daily. substance use type: does not use ROS ROS Narrative Admission Review of Systems: CONSTITUTIONAL: No weight loss, fever, chills, + weakness or fatigue. HEENT: Eyes: No visual loss, blurred vision, double vision or yellow sclerae. Ears, Nose, Throat: No hearing loss, sneezing, congestion, runny nose or sore throat. SKIN: No rash or itching, lesions, wounds. CARDIOVASCULAR: No chest pain, chest pressure or chest discomfort, palpitations, edema, orthopnea, syncopal events. RESPIRATORY: No shortness of breath, cough or sputum, wheezing, hemoptysis. GASTROINTESTINAL: + anorexia, nausea, No vomiting or diarrhea, abdominal pain, melena, BRBPR. GENITOURINARY: No dysuria, frequency, urgency or retention. NEUROLOGICAL: + Tremors, tactile disturbances. No headache, dizziness, syncope, paralysis, ataxia, focal weakness, change in bowel or bladder control, seizure. MUSCULOSKELETAL: No muscle, back pain, joint pain or stiffness. HEMATOLOGIC: No anemia, bleeding or bruising. LYMPHATICS: No enlarged nodes. No history of splenectomy. PSYCHIATRIC: + history of depression or anxiety. ENDOCRINOLOGIC: No reports of sweating, cold or heat intolerance. No polyuria or polydipsia. ALLERGIES: No history of asthma, hives, eczema or rhinitis. Vital Signs Vital Signs Vital Signs: 04/20/21 13:42 Temperature 97.8 F Temperature Source Temporal Pulse Rate 115 H Respiratory Rate 20 H Blood Pressure 134/93 H Blood Pressure Mean 106 Pulse Ox 93 Oxygen Delivery Method Room Air Weight Weight: 161 lb 3.2 oz Body Mass Index (BMI) 25.2 Physical Exam Narrative Physical Examination: General: Awake, alert, oriented x 3 and cooperative, seated upright in the ED bed, fatigued, restless, flushed. Skin: Flushed color, normal turgor, no icterus, no cyanosis. HEENT: AT/NC, EOMI, PERRLA, dry MM, no carotid bruits or JVD noted. Lungs: Mildly diminished, > bases, moderate effort, no rales, ronchi or wheezing. Heart: Mildly tachycardic rhythm; no gallop, rub audible. Abdomen: Soft, NTTP, ND, normal BS, +HM. Extremities: No cyanosis, clubbing, or edema. Neurological: Patient awake, alert, oriented as noted, cognitive function intact; pupils equally reactive to light and accommodation, cranial nerves II- XII grossly normal, moving all 4 extremities, no focal deficits, strength mildly globally decreased, restless, mild tremors noted. Psychiatric: Affect appears near tears, frustrated, depressed, no acute evidence anxiety feelings. Results Lab / Micro Data Result Diagrams: 04/20/21 14:23 04/20/21 14:23 Labs: Laboratory Results - last 24 hr 04/20/21 14:23 WBC 15.3 H RBC 5.48 Hgb 17.2 H Hct 48.4 MCV 88.3 MCH 31.4 MCHC 35.5 RDW Std Deviation 47.3 H RDW Coeff of Miguel 14.8 H Plt Count 559 H MPV 9.8 Immature Gran % (Auto) 0.300 Neut % (Auto) 64.0 Lymph % (Auto) 23.2 [place] % (Auto) 11.8 H Eos % (Auto) 0.2 Baso % (Auto) 0.5 Absolute Neuts (auto) 9.8 H Absolute Lymphs (auto) 3.55 Nucleated RBC % 0 Assessment & Plan Assessment/Plan (1) Alcohol withdrawal: QUALIFIERS: Complication of substance-induced condition: with unspecified complication Qualified Code(s): F10.239 - Alcohol dependence with withdrawal, unspecified PLAN: The patient is a 40 y/o F w/ PMHx: Anxiety and Depression taking himself off his regimen ~ 5 months prior noting he did not like the way it made him feel, notes he felt artificial, Hx Chew tobacco (prior 1 can routinely, no use x 2 weeks), EtOH abuse with binge days to weeks with up to 20-25 drinks daily of various types including beer, wine, hard liquor who presents to the [facility] on 04/20/21 w/ noted acute EtOH withdrawal. 1. Acute EtOH Withdrawal with history of DTs: Will admit to [facility], routine labs obtained in the ED upon presentation and pending upon evaluation as noted. Given interest in sobriety, will initiate and continue on protocol with taper course of Phenobarbital, scheduled gabapentin for seizure prophylaxis, as needed Catapres, Bentyl, Vistaril, IV fluids, IV antiemetics, Tylenol as needed for pain. Will consult Case management for assistance for transition to next level of rehabilitation care. Mag, phos pending. Maintain on CIWA protocol concurrently given discussion with patient may need ativan breakthrough. Given patient's routine need for withdrawal treatments would benefit from a long-term facility to which he is amenable at receiving information. 2. Anxiety and depression: Patient notes he is been on several agents and has also undergone counseling, noted need for continued evaluations as likely contributing to #1 and patient notes being amenable. 3. Chew tobacco: Patient with 2 tobacco history, notes has not used for 2 weeks, offered nicotine replacement which was declined. 4. DVT prophylaxis: Low risk, encourage ambulation. Charges/Coding Visit Charges Inpatient E&M: 18195 Init Hosp L3
[2021-04-20 14:43] VITALS: BP 131/95; PULSE 109; PULSE 99; RESP 16; O2SAT 97; O2SAT 98
[2021-04-20 14:49] LABS: ALB/GLOB Ratio 1.2 RATIO (0.9-2.4); AST(SGOT) 50 U/L (15-37); Alanine Aminotransfer ALT/SGPT 103 U/L (16-61); Albumin, Serum 4.6 g/dL (3.2-5.0); Alkaline Phosphatase 74 U/L (45-117); Anion Gap 14 (5-15); BUN 7 mg/dL (7-18); BUN/Creat Ratio 7.3 RATIO (10-20); Calcium,Total 9.1 mg/dL (8.5-10.1); Chloride 90 mmol/L (98-107); Creatinine, Serum 0.96 mg/dL (0.70-1.30); EST Glomerular Filtration Rate 93 mL/min (>60); Est Glom Filt Rate - Afr Amer 112 mL/min (>60); Estimated Creatinine Clearance 97.54 ml/min; Globulin 3.7 g/dL (2.2-4.2); Glucose 141 mg/dL (74-106); Potassium 3.4 mmol/L (3.5-5.1); Protein, Total 8.3 g/dL (6.4-8.2); Sodium Level 133 mmol/L (136-145)
[2021-04-20 14:51] LABS: Magnesium 2.5 mg/dL (1.6-2.6); Phosphorus 2.8 mg/dL (2.5-4.9)
[2021-04-20 14:55] LABS: Platelet Estimate SLT INC (ADEQ); Reactive Lymphocyte 1+
[2021-04-20 15:18] VITALS: BP 131/98; PULSE 108; RESP 16; TEMP 37.2; O2SAT 98
[2021-04-20] MEDS: Lactated Ringers 1,000 ML 125 ML IV (15:37)
[2021-04-20] MEDS: LORazepam 2 MG/ML Syringe IV ×2 (15:39→17:55)
[2021-04-20] MEDS: Potassium Chloride Oral Tablet 20 MEQ 40 MEQ PO (15:50)
[2021-04-20 15:58] VITALS: BMI 25.2
[2021-04-20 16:00] VITALS: O2SAT 96
[2021-04-20] MEDS: Gabapentin 300 MG Capsule PO (16:17)
[2021-04-20] MEDS: Mag Hydrox/Al Hydrox/Simeth 30 ML UDC PO (16:17)
[2021-04-20 16:59] VITALS: BP 135/96; PULSE 121; RESP 16; TEMP 37.3; O2SAT 97
[2021-04-20] MEDS: Phenobarbital 32.4 MG Tablet 97.2 MG PO (19:54)
[2021-04-20 21:00] VITALS: BP 107/72; PULSE 99; RESP 18; TEMP 36.6; O2SAT 96
[2021-04-21] VITALS (10 sets, daily range): BP systolic 111–153; BP diastolic 70–94; PULSE 80–105; RESP 16–18; TEMP 36.2–37.3; O2SAT 94–100
[2021-04-21] MEDS: Phenobarbital 32.4 MG Tablet 64.8 MG PO ×6 (00:43→19:57)
[2021-04-21] MEDS: LORazepam 1 MG Tablet 2 MG PO ×3 (00:52→17:51)
[2021-04-21 05:59] LABS: Absolute Neutrophil Count 6.3 X10^3/uL (2.0-7.7); Basophil# 0.06 X10^3/uL; Basophil% 0.6 % (0-1); Eosinophil# 0.08 X10^3/uL; Eosinophils% 0.8 % (0-5); Hematocrit 41.5 % (40-54); Hemoglobin 14.1 g/dL (13.0-16.5); Lymphocyte % 21.2 % (19-41); Mean Corpuscular Hgb 31.3 pg (27.0-32.0); Mean Platelet Vol. 10.2 fl (6.2-12.0); Monocyte# 0.96 X10^3/uL; Monocyte% 10.2 % (0-10); NRBC Flagged by Analyzer 0 % (0-5); Neutrophil # 6.28 X10^3/uL (2.7-7.7); Neutrophil % 66.8 % (47-70); Platelet Count 320 K/mm3 (150-450); RBC Distribution Width CV 15.4 % (11.6-14.6); RBC Distribution Width SD 51.4 fl (35.1-43.9); Red Blood Count 4.51 M/mm3 (4.6-6.2); White Blood Count 9.4 K/mm3 (4.4-11.0)
[2021-04-21 06:28] LABS: ALB/GLOB Ratio 1.3 RATIO (0.9-2.4); AST(SGOT) 37 U/L (15-37); Alanine Aminotransfer ALT/SGPT 81 U/L (16-61); Albumin, Serum 3.5 g/dL (3.2-5.0); Alkaline Phosphatase 60 U/L (45-117); Anion Gap 8 (5-15); BUN 10 mg/dL (7-18); BUN/Creat Ratio 11.8 RATIO (10-20); Calcium,Total 8.9 mg/dL (8.5-10.1); Chloride 98 mmol/L (98-107); Creatinine, Serum 0.85 mg/dL (0.70-1.30); EST Glomerular Filtration Rate 107 mL/min (>60); Est Glom Filt Rate - Afr Amer 130 mL/min (>60); Estimated Creatinine Clearance 106.33 ml/min; Globulin 2.7 g/dL (2.2-4.2); Glucose 87 mg/dL (74-106); Potassium 4.5 mmol/L (3.5-5.1); Protein, Total 6.2 g/dL (6.4-8.2); Sodium Level 137 mmol/L (136-145)
--- NOTE | 2021-04-21 07:56 | PN.HOSP_ITS ---
Subjective Subjective Chief complaint: Follow-up after admission for acute alcohol intoxication/impending withdrawal. Patient seen and examined. No acute events overnight. He is still complaining of anxiety and tremors, could not sleep last night. Nausea has been getting better. Denied abdominal pain. Last drink was yesterday morning. His vital signs are stable. Objective Data Objective Data Vital Signs: Vital Signs Temp Pulse Resp BP Pulse Ox 97.2 F L 85 16 125/87 H 96 04/21/21 04:47 04/21/21 04:47 04/21/21 04:47 04/21/21 04:47 04/21/21 07:32 Oxygen Delivery Method Room Air Weight: 156 lb 8.451 oz Body Mass Index (BMI) 25.2 Intake & Output: Intake and Output for Last 24 Hours 04/19/21 04/20/21 04/21/21 23:59 23:59 23:59 Intake Total 1999 Balance 1999 Lab / Micro Data Result Diagrams: 04/21/21 05:24 04/21/21 05:24 Labs: Laboratory Results - last 24 hr 04/20/21 04/20/21 04/20/21 14:23 14:23 14:25 WBC 15.3 H RBC 5.48 Hgb 17.2 H Hct 48.4 MCV 88.3 MCH 31.4 MCHC 35.5 RDW Std Deviation 47.3 H RDW Coeff of Miguel 14.8 H Plt Count 559 H MPV 9.8 Immature Gran % (Auto) 0.300 Neut % (Auto) 64.0 Lymph % (Auto) 23.2 [place] % (Auto) 11.8 H Eos % (Auto) 0.2 Baso % (Auto) 0.5 Absolute Neuts (auto) 9.8 H Absolute Lymphs (auto) 3.55 Nucleated RBC % 0 Diff Path Review May foll Reactive Lymphocytes 1+ Platelet Estimate SLT INC Sodium 133 L Potassium 3.4 L Chloride 90 L Carbon Dioxide 29.0 Anion Gap 14 BUN 7 Creatinine 0.96 Estim Creat Clear Calc 97.54 Est GFR (MDRD) Af Amer 112 Est GFR (MDRD) Non-Af 93 BUN/Creatinine Ratio 7.3 L Glucose 141 H Calcium 9.1 Phosphorus Magnesium Total Bilirubin 1.20 H AST 50 H ALT 103 H Alkaline Phosphatase 74 Total Protein 8.3 H Albumin 4.6 Globulin 3.7 Albumin/Globulin Ratio 1.2 Ethyl Alcohol 353.0 H* 04/20/21 04/21/21 04/21/21 14:25 05:24 05:24 WBC 9.4 RBC 4.51 L Hgb 14.1 Hct 41.5 MCV 92.0 MCH 31.3 MCHC 34.0 RDW Std Deviation 51.4 H RDW Coeff of Miguel 15.4 H Plt Count 320 MPV 10.2 Immature Gran % (Auto) 0.400 Neut % (Auto) 66.8 Lymph % (Auto) 21.2 [place] % (Auto) 10.2 H Eos % (Auto) 0.8 Baso % (Auto) 0.6 Absolute Neuts (auto) 6.3 Absolute Lymphs (auto) 2.00 Nucleated RBC % 0 Diff Path Review Reactive Lymphocytes Platelet Estimate Sodium 137 Potassium 4.5 Chloride 98 Carbon Dioxide 31.0 Anion Gap 8 BUN 10 Creatinine 0.85 Estim Creat Clear Calc 106.33 Est GFR (MDRD) Af Amer 130 Est GFR (MDRD) Non-Af 107 BUN/Creatinine Ratio 11.8 Glucose 87 Calcium 8.9 Phosphorus 2.8 Magnesium 2.5 Total Bilirubin 1.70 H AST 37 ALT 81 H Alkaline Phosphatase 60 Total Protein 6.2 L Albumin 3.5 Globulin 2.7 Albumin/Globulin Ratio 1.3 Ethyl Alcohol Physical Exam Const alert, oriented x3 and no apparent distress Constitutional Narrative: Cooperative. General Appearance: cooperative, comfortable and well kempt HEENT normocephalic, head/scalp atraumatic and moist oral mucous membranes Head and Scalp: normocephalic and atraumatic Eyes PERRL, EOMs intact bilaterally, conjunctivae normal and no scleral icterus General Eye: normal appearance of both eyes Periorbital: periorbital findings normal Neck no lymphadenopathy, supple, no meningeal signs, no JVD and no carotid bruits General: trachea midline Thyroid: thyroid normal Resp normal respiratory effort, normal air movement and clear to auscultation bilaterally Auscultation: Negative for crackles, rales, rhonchi or wheezes Cardio regular rate, regular rhythm, S1 normal heart sound, S2 normal heart sound, no murmurs and no JVD Peripheral Pulses: pulses 2+ throughout GI normal to inspection, nondistended, normoactive bowel sounds, soft to palpation, non-tender and non-distended; Negative for hepatosplenomegaly Auscultation: normoactive bowel sounds Extremity normal to inspection, full ROM and no clubbing, cyanosis or edema Skin no rashes or lesions noted, no wounds and no petechiae Neuro oriented x3, CN's II-XII intact bilaterally and moves all extremities Sensorium / Orientation: alert Speech: speech normal Motor Exam: strength 5/5 throughout Psych mental status grossly normal, affect normal and denies hallucinations Assessment & Plan Assessment/Plan (1) Alcohol withdrawal: QUALIFIERS: Complication of substance-induced condition: with unspecified complication Qualified Code(s): F10.239 - Alcohol dependence with withdrawal, unspecified (2) Acute alcohol intoxication: (3) Tobacco abuse: (4) Depression: (5) Anxiety: PLAN: This is a 40 years old male patient presented to the emergency room requesting admission for acute alcohol withdrawal. #1 acute alcohol withdrawal: He is on thiamine and folic acid, on phenobarbital taper, as needed Tylenol, gabapentin, Bentyl, Vistaril, Imodium, Zofran and as needed Ativan. He is still symptomatic, complaining of tremors and anxiety, minimal improvement. Vital signs are stable at this time. Plan to continue same treatment, consult 180 program. #2 mild hyponatremia/hypokalemia: Both sodium and potassium were corrected and replaced. #3 anxiety depression: Currently, he is not on any treatment. Apparently, naun renee has been going under counseling, recommended follow-up with counseling center as outpatient. #4 tobacco abuse: Declined nicotine patch. #5 DVT prophylaxis: Low risk patient, no prophylaxis indicated. This note was generated with [employer] dictation software. It may contain incorrect words, spelling, and punctuation that were not noted in checking the note before signing. Charges/Coding Visit Charges Inpatient E&M: 62047 Subs Hosp L2
[2021-04-21] MEDS: Gabapentin 300 MG Capsule PO ×2 (08:55→17:51)
[2021-04-21] MEDS: Ibuprofen 600 MG Tablet PO ×2 (08:55→19:57)
[2021-04-21] MEDS: Folic Acid 1 MG Tablet PO (08:56)
[2021-04-21] MEDS: Thiamine Hydrochloride 100 MG Tablet PO (08:56)
[2021-04-21] MEDS: 0.9% Saline Lock 10 ML Syringe IV (08:56)
[2021-04-21] MEDS: Dicyclomine 10 MG Capsule 20 MG PO ×2 (08:56→15:45)
[2021-04-21] MEDS: Loperamide 2 MG Capsule PO (08:56)
[2021-04-21] MEDS: Multivitamins,Ther W-Minerals Tablet 1 TABLET PO (08:56)
[2021-04-21] MEDS: Ondansetron 8 MG Tablet PO ×2 (08:56→17:52)
[2021-04-21] MEDS: LORazepam 2 MG/ML Syringe IV (08:57)
[2021-04-21] MEDS: Mag Hydrox/Al Hydrox/Simeth 30 ML UDC PO (10:02)
[2021-04-21] MEDS: Acetaminophen 325 MG Tablet 650 MG PO (10:03)
[2021-04-21] MEDS: hydrOXYzine PAM 25 MG Capsule 50 MG PO ×3 (10:03→19:57)
--- NOTE | 2021-04-21 11:22 | ADDICTION ---
This underwriter solicitation director met with PT to conduct ASAM, MSE, AUDIT assessments and to plan for discharge. All assessments completed, placed in PT's chart and faxed to [facility]. PT is considering his discharge options. This underwriter solicitation director will attempt to finalize d/c plan at next visit.
--- NOTE | 2021-04-21 13:22 | CASEMGMT ---
Social Work Note Pt is RAMP pt and listed as self-pay. Pt was at [facility] from 04/05/2021-04/08/2021 for RAMP and was also self-pay at that time too. SW had met with pt then and provided financial resources. SW met with pt this visit. Pt confirms he has no insurance. Pt states he has applied for Medicaid in the past but not recently. Pt states he had a job but resigned from that job and got a new job but the new job doesn't offer insurance. SW provided pt with financial resources including HCAP application and PFS number, Good RX, prescription Hope, Medicaid Application and [facility] JFS as pt is [facility] resident. [facility] unable to provide pt with [facility] resources as pt is not [facility] Resident. Malinda Kidd HONING MACHINE OPERATOR SEMIAUTOMATIC, NATIONAL ACCOUNT DIRECTOR
[2021-04-21 13:32] LABS: Pathologist Review Reviewed
--- NOTE | 2021-04-21 13:38 | CHAPLAIN ---
Type of Pastoral Visit _x__ Initial Visit ___ Follow-up Visit ___ On-call Visit ___ General Patient Visit ___ Spiritual Assessment ___ Family Conference ___ Bereavement ___ Rapid Response ___ Code Blue ___ Other (describe below) Pastoral Care Referral From _x__ Patient ___ Family ___ Nurse ___ Physician ___ Fence Erector Supervisor ___ Job Printer ___ Other (describe below) Sacrament/Intervention _x__ Active listening ___ Anointing ___ Yazidism ___ Bereavement ___ Communion _x__ Priti exploration ___ _x__ Life review _x__ Prayer ___ Reconciliation ___ Sacrament of Sick _x__ Supportive presence ___ Wedding ___ Other (describe below) Pastoral Comments patient was meeting with 180 counselor when this manager medicare marketing entered room; patient and counselor invited this manager medicare marketing to stay and continue support; pt was welcoming of presence and talked about his past attempts to maintain sober life; pt is looking for something new to help overcome addictions as past attempts have failed; pt is open to priti based and alternative resources; pt welcomed prayer and invited this manager medicare marketing to return on Wednesday for more conversation;
[2021-04-21] MEDS: traZODone 100 MG Tablet PO (21:03)
[2021-04-22] MEDS: Phenobarbital 32.4 MG Tablet 64.8 MG PO ×7 (00:08→23:57)
[2021-04-22 03:13] VITALS: BP 124/70; PULSE 88; RESP 16; TEMP 36.7; O2SAT 96
[2021-04-22] MEDS: Gabapentin 300 MG Capsule PO ×2 (03:21→13:50)
--- NOTE | 2021-04-22 08:09 | PCM.PN.HOSP ---
Subjective Subjective Chief complaint: Follow-up after admission for acute alcohol intoxication/impending withdrawal. Patient seen and examined. This morning, is sleepy and lethargic. Obviously, he received Neurontin according to the nursing staff as well as phenobarbital. Vital signs are stable. Objective Data Objective Data Vital Signs: Vital Signs Temp Pulse Resp BP Pulse Ox 98.0 F 88 16 124/70 H 96 04/22/21 03:13 04/22/21 03:13 04/22/21 03:13 04/22/21 03:13 04/22/21 03:13 Oxygen Delivery Method Room Air Weight: 156 lb 8.451 oz Body Mass Index (BMI) 25.2 Intake & Output: Intake and Output for Last 24 Hours 04/20/21 04/21/21 04/22/21 23:59 23:59 23:59 Intake Total 1999 Balance 1999 Lab / Micro Data Result Diagrams: 04/21/21 05:24 04/21/21 05:24 Labs: Laboratory Results - last 24 hr 04/20/21 14:23 Diff Path Review Reviewed Physical Exam Const alert, no apparent distress and no limitations Constitutional Narrative: Sleepy, lethargic but arousable. HEENT normocephalic, head/scalp atraumatic and moist oral mucous membranes Eyes PERRL, EOMs intact bilaterally, conjunctivae normal and no scleral icterus Neck no lymphadenopathy, supple, no JVD and no carotid bruits Resp normal respiratory effort, normal air movement and clear to auscultation bilaterally Auscultation: Negative for crackles, rales, rhonchi or wheezes Cardio regular rate, regular rhythm, S1 normal heart sound, S2 normal heart sound, no murmurs and no JVD Peripheral Pulses: pulses 2+ throughout GI normal to inspection, nondistended, normoactive bowel sounds, soft to palpation, non-tender and non-distended; Negative for hepatosplenomegaly Auscultation: normoactive bowel sounds Extremity normal to inspection, full ROM and no clubbing, cyanosis or edema Skin no rashes or lesions noted, no wounds and no petechiae Neuro oriented x3, CN's II-XII intact bilaterally and moves all extremities Sensorium / Orientation: alert Speech: speech normal Motor Exam: strength 5/5 throughout Psych mental status grossly normal, affect normal and denies hallucinations Assessment & Plan Assessment/Plan (1) Alcohol withdrawal: QUALIFIERS: Complication of substance-induced condition: with unspecified complication Qualified Code(s): F10.239 - Alcohol dependence with withdrawal, unspecified (2) Acute alcohol intoxication: (3) Tobacco abuse: (4) Depression: (5) Anxiety: PLAN: This is a 40 years old male patient presented to the emergency room requesting admission for acute alcohol withdrawal. #1 acute alcohol withdrawal: Remained on thiamine and folic acid, on phenobarbital taper, as needed Tylenol, gabapentin, Bentyl, Vistaril, Imodium, Zofran and as needed Ativan. This morning, he is sleepy and lethargic, received phenobarbital as well as Neurontin. Vital signs are stable at this time. Plan to continue same treatment. #2 mild hyponatremia/hypokalemia: Both sodium and potassium were corrected and replaced. #3 anxiety depression: Currently, he is not on any treatment. Apparently, patient has been going under counseling, recommended follow-up with counseling center as outpatient. #4 tobacco abuse: Declined nicotine patch. #5 DVT prophylaxis: Low risk patient, no prophylaxis indicated. This note was generated with [employer] dictation software. It may contain incorrect words, spelling, and punctuation that were not noted in checking the note before signing. Charges/Coding Visit Charges Inpatient E&M: 14781 Subs Hosp L2
--- NOTE | 2021-04-22 08:28 | ADDICTION ---
This proposal lead writer met with PT to finalize d/c plan. PT chose to follow up with a psychiatrist upon discharge. PT's father indicated that he is working with Miguelina from [employer] who is assisting them in identifying and scheduling with a psychiatrist in [place]. PT amiable to this plan.
[2021-04-22 08:56] VITALS: BP 113/71; PULSE 84; RESP 16; TEMP 36.7; O2SAT 99
[2021-04-22] MEDS: Thiamine Hydrochloride 100 MG Tablet PO (08:57)
[2021-04-22] MEDS: Folic Acid 1 MG Tablet PO (08:58)
[2021-04-22] MEDS: hydrOXYzine PAM 25 MG Capsule 50 MG PO ×2 (08:58→15:27)
[2021-04-22] MEDS: Multivitamins,Ther W-Minerals Tablet 1 TABLET PO (08:58)
[2021-04-22] MEDS: Mag Hydrox/Al Hydrox/Simeth 30 ML UDC PO (13:50)
[2021-04-22] MEDS: Ibuprofen 600 MG Tablet PO (13:50)
[2021-04-22 15:20] VITALS: BP 120/79; PULSE 84; RESP 16; TEMP 36.7; O2SAT 97
--- NOTE | 2021-04-22 16:32 | CHAPLAIN ---
Type of Pastoral Visit ___ Initial Visit _x__ Follow-up Visit ___ On-call Visit ___ General Patient Visit ___ Spiritual Assessment ___ Family Conference ___ Bereavement ___ Rapid Response ___ Code Blue ___ Other (describe below) Pastoral Care Referral From _x__ Patient ___ Family ___ Nurse ___ Physician ___ Manager Winter ___ Hospitality Team Member ___ Other (describe below) Sacrament/Intervention _x__ Active listening ___ Anointing ___ Presybeterian ___ Bereavement ___ Communion _x__ Priti exploration ___ _x__ Life review _x__ Prayer ___ Reconciliation ___ Sacrament of Sick _x__ Supportive presence ___ Wedding ___ Other (describe below) Pastoral Comments follow up visit with patient per his request; pt repeats his options for treatment and recovery; pt is looking for answers and has many questions about priti, God, people of priti, roman catholic, the Bible, etc.; pt's father is wanting pt to go to a therapist and pt may follow up with that; at times pt allows an emotion to be expressed instead of just thoughts and questions; pt welcomes prayer and the ongoing spiritual care support
[2021-04-22 19:34] VITALS: BP 98/63; PULSE 71; RESP 16; TEMP 36.9; O2SAT 97
[2021-04-22 19:37] VITALS: BP 98/63; PULSE 71; RESP 16; TEMP 36.9; O2SAT 97
[2021-04-23 00:01] VITALS: BP 91/58; PULSE 73; RESP 16; TEMP 36.7; O2SAT 98
[2021-04-23 03:51] VITALS: BP 93/64; PULSE 60; RESP 16; TEMP 36.6; O2SAT 96
[2021-04-23] MEDS: Phenobarbital 32.4 MG Tablet 64.8 MG PO ×2 (03:51→08:27)
[2021-04-23 03:53] VITALS: BP 93/61; PULSE 60; RESP 16; TEMP 36.6; O2SAT 96
[2021-04-23] MEDS: Gabapentin 300 MG Capsule PO (04:01)
[2021-04-23 07:00] VITALS: O2SAT 96
--- NOTE | 2021-04-23 08:13 | PCM.DC ---
Discharge Instructions Diet Discharge Diet: No restrictions Activity Discharge Activity: Return to Normal Activity Dressing / Incision Call your doctor if you observe: Fever of 101 or Higher, Shortness of breath, Dizziness, Fainting spells, Chest pain, Increased palpitations (irregular heartbeat) and Uncontrolled pain Follow Up Care Test Results: Test results from this visit will be discussed in further detail at your follow-up appointment, if applicable. Discharge Plan Admission Admit Date/Time: 04/20/21 14:36 Primary Reason for Your Visit: Acute alcohol withdrawal Attending Provider: Mavis Gonzalez Primary Care Provider: Care Physician,No Primary Instructions Patient Instructions: Alcoholism: How to be Part of the Solution, Recovering from Addiction, Recovering from Addiction: Continuing with Counseling, Recovering from Addiction: Coping with Relapse Discharge Orders/Prescriptions Prescriptions: No Action NK RF: 0 Referrals / Follow Up: Care Physician,No Primary [Primary Care Provider] - Within 1 Month Disposition Disposition (needs filled in before D/C Order can be placed): Home, self care
[2021-04-23] MEDS: Multivitamins,Ther W-Minerals Tablet 1 TABLET PO (08:23)
[2021-04-23] MEDS: Folic Acid 1 MG Tablet PO (08:24)
[2021-04-23] MEDS: Thiamine Hydrochloride 100 MG Tablet PO (08:24)
[2021-04-23 08:29] VITALS: BP 119/74; PULSE 70; RESP 16; TEMP 36.7; O2SAT 100
--- NOTE | 2021-04-23 09:23 | PHA.DC.MR ---
Pharmacy Service has performed discharge medication reconciliation for this patient. The patient's discharge medication list was reviewed for discrepancies and discrepancies were resolved. Home Medications NK 04/05/21
--- NOTE | 2021-04-23 11:56 | DS.PCM_ITS ---
Providers Date of Admission: 04/20/21 Primary Care Physician: Gillian Primary Care Phys Reason For Visit: ETOH ABUSE/WITHDRAWAL TREATMENT Diagnosis Discharge Diagnosis (1) Alcohol withdrawal: Status: Acute Code(s): F10.239 - Alcohol dependence with withdrawal, unspecified Qualifiers: Complication of substance-induced condition: with unspecified complication Qualified Code(s): F10.239 - Alcohol dependence with withdrawal, unspecified (2) Acute alcohol intoxication: Status: Acute Code(s): F10.929 - Alcohol use, unspecified with intoxication, unspecified (3) Tobacco abuse: Status: Chronic Code(s): Z72.0 - Tobacco use (4) Depression: Status: Acute Code(s): F32.9 - Major depressive disorder, single episode, unspecified (5) Anxiety: Status: Chronic Code(s): F41.9 - Anxiety disorder, unspecified Medications at Discharge Home Medications NK 04/05/21 Hospital Course Operations None Procedures None Summary of Care Provided Minutes Spent on Discharge: 26 Hospital Course: This is a 40 years old male patient presented to the emergency room requesting admission for acute alcohol intoxication/withdrawal for medical stabilization. Patient had an history of alcohol abuse with multiple admissions for detox and relapse. On admission, blood alcohol level was 353. He was started on tapering phenobarbital, as needed Ativan, thiamine and folic acid supplement, as needed Tylenol, gabapentin, Bentyl, Vistaril, Imodium and Zofran. With treatment his symptoms slowly improved and he did well. He was found to have mild hyponatremia and hypokalemia and both sodium and potassium was replaced and corrected. 180 program consulted and patient's father has been trying to help his son to be seen by psychiatry as outpatient. Patient symptoms improved and he is ready to be discharged. Patient is being discharged home in a stable condition, plan to follow-up with psychiatry as outpatient and his fat her will help him to find a psychiatrist, recommended follow-up with PCP in 1 month. Physical Exam Const alert, oriented x3, no apparent distress and no limitations General Appearance: cooperative HEENT normocephalic, head/scalp atraumatic, external ears normal, external nose normal and moist oral mucous membranes Eyes PERRL, EOMs intact bilaterally, conjunctivae normal and no scleral icterus General Eye: normal appearance of both eyes Neck no lymphadenopathy, supple, no meningeal signs, no JVD and no carotid bruits Lymph Lymphatic: no lymphadenopathy noted Resp normal respiratory effort, normal air movement and clear to auscultation bilaterally Auscultation: Negative for crackles, rales, rhonchi or wheezes Cardio regular rate, regular rhythm, S1 normal heart sound, S2 normal heart sound, no murmurs and no JVD GI normal to inspection, nondistended, normoactive bowel sounds, soft to palpation, non-tender and non-distended; Negative for hepatosplenomegaly Extremity normal to inspection, full ROM and no clubbing, cyanosis or edema Skin no rashes or lesions noted, no wounds and no petechiae Neuro oriented x3, CN's II-XII intact bilaterally and moves all extremities Sensorium / Orientation: alert Speech: speech normal Motor Exam: strength 5/5 throughout Psych mental status grossly normal, affect normal and denies hallucinations Weight / BMI Weight Weight: 156 lb 8.451 oz Body Mass Index (BMI) 25.2 ABG / Lab / Microbiology Data Result Diagrams: 04/21/21 05:24 04/21/21 05:24 D/C Instructions Discharge Diet: No restrictions Call your doctor if you observe: Fever of 101 or Higher, Shortness of breath, Dizziness, Fainting spells, Chest pain, Increased palpitations (irregular heartbeat) and Uncontrolled pain Meaningful Use Info Meaningful Use Diagnoses (Choose all that apply): None applicable Discharge Plan Admission Admit Date/Time: 04/20/21 14:36 Primary Reason for Your Visit: Acute alcohol withdrawal Attending Provider: Mavis Gonzalez Primary Care Provider: Care Physician,No Primary Instructions Patient Instructions: Alcoholism: How to be Part of the Solution, Recovering from Addiction, Recovering from Addiction: Continuing with Counseling, Recovering from Addiction: Coping with Relapse Discharge Orders/Prescriptions Prescriptions: No Action NK RF: 0 Referrals / Follow Up: Care Physician,No Primary [Primary Care Provider] - Within 1 Month Disposition Disposition (needs filled in before D/C Order can be placed): Home, self care Charges/Coding Visit Charges Inpatient E&M: 76917 Disch Hosp
[2021-04-23 12:30] VITALS: BP 122/95; PULSE 99; RESP 18; TEMP 36.8; O2SAT 99
== END 2021-04-23 12:40 | disposition home or self-care (01) | DRG 897 ==
LOC: ED 14:08 → MS3 16:02
PROVIDERS: Admitting Provider Family Medicine; Emergency Provider Emergency Medicine; Visit Provider Hospitalist
DX: F10.229 Alcohol dependence with intoxication, unspecified (principal); E87.1 Hypo-osmolality and hyponatremia; E87.6 Hypokalemia; F10.239 Alcohol dependence with withdrawal, unspecified; Y90.8 Blood alcohol level of 240 mg/100 ml or more; F32.9 Major depressive disorder, single episode, unspecified; F41.9 Anxiety disorder, unspecified; F17.220 Nicotine dependence, chewing tobacco, uncomplicated
CPT/HCPCS: 36415; 80053; 82077; 83735; 84100; 85025; 99281; 99406; J7030; J7120; A4216; J2405

== ENCOUNTER 2021-04-28 10:04 | Observation (INO) | payer MEDICAID, SELFPAY ==
[2021-04-28] VITALS (7 sets, daily range): BP systolic 129–148; BP diastolic 70–97; PULSE 74–111; RESP 14–20; TEMP 36.2–37; O2SAT 95–98; BMI 25.2; BMI 25.0
--- NOTE | 2021-04-28 10:34 | EKG12_ITS ---
Test Reason : Blood Pressure : / mmHG Vent. Rate : 104 BPM Atrial Rate : 104 BPM P-R Int : 126 ms QRS Dur : 086 ms QT Int : 334 ms P-R-T Axes : 039 020 030 degrees QTc Int : 439 ms Sinus tachycardia Otherwise normal ECG Confirmed by LAINE JIN, ROMEL ([id number]), newspaper photo editor CHARLINE ROBB ([id number]) on 05/01/2021 9:50:28 AM Referred By: VIRIDIANA Confirmed By:ROMEL JANG MD
--- NOTE | 2021-04-28 10:34 | EX.ED.SAOD ---
HPI History of Present Illness Chief Complaint: ETOH Intox Informant: patient and parent Narrative Narrative: 40-year-old male presents to the emergency department requesting inpatient detox for alcoholism. Patient states that he has done 3 IOP, to inpatient, a grew, numerous medications and states that none of them have helped him. He states that today he does not wish to from his alcoholism. His father would like to discuss the type of inpatient program and treatment options for him. But the patient does not inform me of that which I discovered on chart review is that he was just discharged last week from this hospital for alcohol withdrawal and at the end of March for alcohol withdrawal. [facility] Medical History Alcohol abuse Alcoholism Anxiety Depression Depression Kidney stones Home Medications NK 04/05/21 [History Last Taken Unknown] Allergy/AdvReac Type Severity Reaction Status Date / Time No Known Allergies Allergy Verified 04/28/21 10:07 Family History Mother Hypertension Alcoholism Father Cancer Father with history of squamous and melanoma, prostate CA. Surgical History Hx of adenoidectomy Social History household members: none Smoking Status: Never smoker Smokeless tobacco user: chewing tobacco alcohol intake: current details: EtOH abuse history with binge periods of 20-25 drinks daily. substance use type: does not use ROS ROS ED Constitutional Constitutional ED: Denies chills or weight loss Eyes Eyes: Denies change in vision or diplopia ENT ENT ED: Denies ear pain, rhinorrhea or sore throat Cardiovascular Cardiovascular: Denies chest pain, orthopnea, palpitations or racing heartbeat Respiratory/Chest Respiratory/Chest: Denies cough, dyspnea or orthopnea Gastrointestinal Gastrointestinal: Denies abdominal pain, diarrhea, nausea or vomiting Genitourinary Genitourinary ED: Denies dysuria, hematuria or urinary frequency Musculoskeletal Musculoskeletal: Denies arthralgias or myalgias Integumentary Denies abscess or rash Neurologic Neurologic: Denies headache(s) or weakness Psychiatric Psychiatric: Denies anxiety, depression, suicidal ideation or suicidal thoughts Endocrine Endocrinology: Denies polydipsia, polyphagia or polyuria Allergic/Immunologic Allergic/Immunologic ED: Denies mouth swelling, tongue swelling or urticaria EXAM Physical Exam Const Vital Signs: 04/28/21 10:09 04/28/21 10:54 Temperature 97.1 F L Temperature Source Temporal Pulse Rate 105 H Respiratory Rate 14 16 Blood Pressure 136/89 H Blood Pressure Mean 104 Pulse Ox 95 Oxygen Delivery Method Room Air Positive well nourished and well developed General Appearance ED: well developed HEENT Reports normocephalic, head/scalp atraumatic and moist mucous membranes Eyes PERRL and EOMs intact bilaterally Neck no lymphadenopathy, supple and no JVD Resp normal respiratory effort and clear to auscultation bilaterally Cardio regular rate and no murmurs Rate: tachycardic GI normal to inspection, nondistended, normoactive bowel sounds and non-tender Palpation: soft Back/Spine no CVA tenderness and normal ROM Extremity normal to inspection General Extremety ED: Negative for edema General Extremity: Negative for edema Neuro oriented x3 and CN's II-XII intact bilaterally Sensorium / Orientation: alert Motor Exam: strength 5/5 throughout Psych mental status grossly normal Appearance: grossly normal Attitude: agitated and aggressive Mood & Affect: Negative for depressed or tearful Skin no rashes or lesions noted and no wounds MDM MDM MDM Narrative Medical decision making narrative: Patient had medical screening labs performed. I spoke with her hospitalist who will admit the patient. Lab Data Attestation: I reviewed the patient's lab results. Labs: Laboratory Results - last 24 hr 04/28/21 04/28/21 04/28/21 10:48 10:48 10:48 WBC 7.1 RBC 5.01 Hgb 15.9 Hct 44.6 MCV 89.0 MCH 31.7 MCHC 35.7 RDW Std Deviation 49.3 H RDW Coeff of Miguel 15.3 H Plt Count 307 MPV 10.6 Immature Gran % (Auto) 0.300 Neut % (Auto) 51.8 Lymph % (Auto) 33.9 Cloud % (Auto) 12.6 H Eos % (Auto) 0.7 Baso % (Auto) 0.7 Absolute Neuts (auto) 3.7 Absolute Lymphs (auto) 2.39 Nucleated RBC % 0 Sodium 137 Potassium 3.7 Chloride 95 L Carbon Dioxide 26.0 Anion Gap 16 H BUN 6 L Creatinine 0.82 Estim Creat Clear Calc 110.22 Est GFR (MDRD) Af Amer 135 Est GFR (MDRD) Non-Af 111 BUN/Creatinine Ratio 7.3 L Glucose 108 H Calcium 9.0 Total Bilirubin 1.10 H AST 22 ALT 51 Alkaline Phosphatase 78 Total Protein 7.6 Albumin 4.2 Globulin 3.4 Albumin/Globulin Ratio 1.2 Ethyl Alcohol 265.0 EKG Initial EKG: Attestation: I personally reviewed and interpreted this EKG as follows: Comments: EKG demonstrates a sinus tachycardia rate of 104. No concerning features of ACS Discharge Plan Dx/Rx/DC Orders Clinical Impression: Alcoholism, Alcohol withdrawal Disposition Disposition: Acute Care Hospital [facility]
--- NOTE | 2021-04-28 10:39 | NURSING ---
NO OLD EKGS
[2021-04-28 10:56] LABS: Absolute Lymphocyte Count 2.39 X10^3/uL (0.83-4.51); Absolute Neutrophil Count 3.7 X10^3/uL (2.0-7.7); Basophil# 0.05 X10^3/uL; Basophil% 0.7 % (0-1); Eosinophil# 0.05 X10^3/uL; Eosinophils% 0.7 % (0-5); Hematocrit 44.6 % (40-54); Hemoglobin 15.9 g/dL (13.0-16.5); Lymphocyte # 2.39 X10^3/ul (0.83-4.51); Lymphocyte % 33.9 % (19-41); Mean Corp Hgb Conc 35.7 g/dL (32-36); Mean Corpuscular Hgb 31.7 pg (27.0-32.0); Mean Platelet Vol. 10.6 fl (6.2-12.0); Monocyte# 0.89 X10^3/uL; Monocyte% 12.6 % (0-10); NRBC Flagged by Analyzer 0 % (0-5); Neutrophil # 3.65 X10^3/uL (2.7-7.7); Neutrophil % 51.8 % (47-70); Platelet Count 307 K/mm3 (150-450); RBC Distribution Width CV 15.3 % (11.6-14.6); RBC Distribution Width SD 49.3 fl (35.1-43.9); Red Blood Count 5.01 M/mm3 (4.6-6.2); White Blood Count 7.1 K/mm3 (4.4-11.0)
[2021-04-28 11:14] LABS: ALB/GLOB Ratio 1.2 RATIO (0.9-2.4); AST(SGOT) 22 U/L (15-37); Alanine Aminotransfer ALT/SGPT 51 U/L (16-61); Albumin, Serum 4.2 g/dL (3.2-5.0); Alkaline Phosphatase 78 U/L (45-117); Anion Gap 16 (5-15); BUN 6 mg/dL (7-18); BUN/Creat Ratio 7.3 RATIO (10-20); Chloride 95 mmol/L (98-107); Creatinine, Serum 0.82 mg/dL (0.70-1.30); EST Glomerular Filtration Rate 111 mL/min (>60); Est Glom Filt Rate - Afr Amer 135 mL/min (>60); Estimated Creatinine Clearance 110.22 ml/min; Globulin 3.4 g/dL (2.2-4.2); Glucose 108 mg/dL (74-106); Potassium 3.7 mmol/L (3.5-5.1); Protein, Total 7.6 g/dL (6.4-8.2); Sodium Level 137 mmol/L (136-145)
--- NOTE | 2021-04-28 11:47 | NURSING ---
DR GEORGES BARRY
--- NOTE | 2021-04-28 11:47 | PCM.HP.STD ---
HPI - General General Date of Admission: 04/28/21 Date of Service: 04/28/21 Chief Complaint: alcohol detox HPI Narrative BARBARA HORTON, is a 40 M with past medical history sent in for alcohol dependence recently discharged from the hospital on 04/23/2021 who presents voluntarily for alcohol detoxification. Per patient he relapsed after he was discharged home. He also reports feeling of anxiety as well as tremulous. His last alcohol was 6 hours prior to his admission. He admitted to drinking wine in addition to whiskey. An assessment of acute alcohol withdrawal made admitted to regular nursing for further management [facility] Medical History Alcohol abuse Alcoholism Anxiety Depression Depression Kidney stones Home Medications NK 04/05/21 [History Last Taken Unknown] Allergy/AdvReac Type Severity Reaction Status Date / Time No Known Allergies Allergy Verified 04/28/21 10:07 Family History Mother Hypertension Alcoholism Father Cancer Father with history of squamous and melanoma, prostate CA. Surgical History Hx of adenoidectomy Social History household members: none Smoking Status: Never smoker Smokeless tobacco user: chewing tobacco alcohol intake: current details: EtOH abuse history with binge periods of 20-25 drinks daily. substance use type: does not use ROS ROS Narrative GENERAL: denies fever, chills, HEENT: denies headache, sinus congestion, RESPIRATORY: denies cough, sputum production, CARDIAC: denies chest pain, palpitations, orthopnea, GASTROINTESTINAL: denies abdominal pain, nausea, GENITOURINARY: denies dysuria, urgency, frequency, EXTREMITY: denies swelling MUSCULOSKELETAL: denies current joint pain or tenderness NEUROLOGIC: denies focal numbness, weakness, tingling HEMATOLOGIC: denies easy bruising and/or hemorrhage INTEGUMENT: denies rashes PSYCHIATRIC: Anxiety Vital Signs Vital Signs Vital Signs: 04/28/21 10:09 04/28/21 10:54 Temperature 97.1 F L Temperature Source Temporal Pulse Rate 105 H Respiratory Rate 14 16 Blood Pressure 136/89 H Blood Pressure Mean 104 Pulse Ox 95 Oxygen Delivery Method Room Air Weight Weight: 70.9 kg Body Mass Index (BMI) 25.2 Physical Exam Narrative GENERAL: Patient appears anxious HEENT: Atraumatic; EYES; Anicteric, Normal Conjunctiva NECK; supple, normal thyroid, RESPIRATORY: Diminished to auscultation CARDIOVASCULAR: Regular S1 S2, GI: soft, normoactive bowel sounds, : No Renal angle tenderness; EXTREMITIES: No edema, no clubbing, MUSCULOSKELETAL: no muscle waisting NEURO: Awake; no lateralizing signs. SKIN: No Rash PSYCH; Flat affect Results Lab / Micro Data Result Diagrams: 04/28/21 10:48 04/28/21 10:48 Labs: Laboratory Results - last 24 hr 04/28/21 04/28/21 04/28/21 10:48 10:48 10:48 WBC 7.1 RBC 5.01 Hgb 15.9 Hct 44.6 MCV 89.0 MCH 31.7 MCHC 35.7 RDW Std Deviation 49.3 H RDW Coeff of Miguel 15.3 H Plt Count 307 MPV 10.6 Immature Gran % (Auto) 0.300 Neut % (Auto) 51.8 Lymph % (Auto) 33.9 Clarke % (Auto) 12.6 H Eos % (Auto) 0.7 Baso % (Auto) 0.7 Absolute Neuts (auto) 3.7 Absolute Lymphs (auto) 2.39 Nucleated RBC % 0 Sodium 137 Potassium 3.7 Chloride 95 L Carbon Dioxide 26.0 Anion Gap 16 H BUN 6 L Creatinine 0.82 Estim Creat Clear Calc 110.22 Est GFR (MDRD) Af Amer 135 Est GFR (MDRD) Non-Af 111 BUN/Creatinine Ratio 7.3 L Glucose 108 H Calcium 9.0 Total Bilirubin 1.10 H AST 22 ALT 51 Alkaline Phosphatase 78 Total Protein 7.6 Albumin 4.2 Globulin 3.4 Albumin/Globulin Ratio 1.2 Ethyl Alcohol 265.0 Assessment & Plan Assessment/Plan (1) Alcohol withdrawal: QUALIFIERS: Complication of substance-induced condition: with unspecified complication Qualified Code(s): F10.239 - Alcohol dependence with withdrawal, unspecified (2) Withdrawn from alcohol detoxification program: (3) Hyperbilirubinemia: (4) Tobacco abuse: (5) Acute alcohol intoxication: (6) Depression: (7) Anxiety: PLAN: Patient is a 40-year-old gentleman with history of alcohol dependence presenting with acute alcohol intoxication with desire to undergo medical stabilization 1. Acute alcohol intoxication at significant risk for alcohol withdrawal ?Patient has been admitted to regular nursing floor for medical stabilization using phenobarb. Consult was placed to case management to assist with disposition possibly to an inpatient detox unit for long-term rehab 2. Chronic alcohol dependence ?Counseled on cessation 3. Tobacco dependence - Counseled on cessation, offered nicotine patch for tobacco cravings 4. Depression with anxiety ?Did discuss with patient and his father about the need for patient to undergo psychiatric evaluation once medically stable 5. DVT prophylaxis ?Low risk did encourage ambulation Charges/Coding Visit Charges Inpatient E&M: 36687 Init Hosp L2
--- NOTE | 2021-04-28 11:49 | NURSING ---
MED SURG KITTOE ALCOHOL WITHDRAWAL
[2021-04-28 12:30] LABS: Amphetamine Urine VISTA NEGATIVE (<1000 ng/mL); Barbiturate Urine VISTA POSITIVE (< 200 ng/mL); Benzodiazepine Urine VISTA NEGATIVE (< 200 ng/mL); Cocaine Urine VISTA NEGATIVE (< 300 ng/mL); Ecstacy Urine VISTA NEGATIVE (< 500 ng/mL); Methadone Urine VISTA NEGATIVE (< 300 ng/mL); PCP Urine VISTA NEGATIVE (< 25 ng/mL); THC Urine VISTA NEGATIVE (< 50 ng/mL); Vista UDS pH Range 6
--- NOTE | 2021-04-28 12:30 | CM.ED ---
SOCIAL WORK Referral Source: Dr. Elizabeth Reason for Consult: Substance Abuse Met with patient and patient's father in room. Introduced role and reason for referral. Patient presents for detox from alcohol. Patient reports last drink was this morning around 5am. Patient reports has been through detox and treatment programs in the past. Father asking for resources for self for support. Education provided on Al-Anon. Call to [facility] Treatment Navigator, Eliseo to update on patient's admission. Eliseo to update Collette. Plan: Admit to [facility] Servin, WAFER POLISHING WORKER, ASH HANDLER
[2021-04-28] MEDS: Ondansetron ODT 4 MG Tablet PO (12:44)
[2021-04-28] MEDS: Phenobarbital 32.4 MG Tablet 64.8 MG PO ×3 (13:46→21:13)
[2021-04-28] MEDS: Lactated Ringers 1,000 ML 125 ML IV (13:47)
[2021-04-28] MEDS: hydrOXYzine PAM 25 MG Capsule 50 MG PO (15:23)
--- NOTE | 2021-04-28 16:37 | CHAPLAIN ---
Type of Pastoral Visit _x__ Initial Visit ___ Follow-up Visit ___ On-call Visit ___ General Patient Visit ___ Spiritual Assessment ___ Family Conference ___ Bereavement ___ Rapid Response ___ Code Blue ___ Other (describe below) Pastoral Care Referral From _x__ Patient ___ Family _x__ Nurse ___ Physician ___ Telephone Ad Taker ___ Manager Hiv ___ Other (describe below) Sacrament/Intervention _x__ Active listening ___ Anointing ___ Temple ___ Bereavement ___ Communion _x__ Priti exploration ___ _x__ Life review _x__ Prayer ___ Reconciliation ___ Sacrament of Sick _x__ Supportive presence ___ Wedding ___ Other (describe below) Pastoral Comments RN notified this lusterer that patient specifically requested assistance with his pain in the soul; pt was seen last week and was readmitted; pt gives long discussion on his many and unsuccessful attempts for sobriety; pt is open to spiritual help and healing; pt has interest in spiritual conversation and prayer support
[2021-04-28] MEDS: Ibuprofen 600 MG Tablet PO (21:13)
[2021-04-28] MEDS: traZODone 100 MG Tablet PO (21:13)
[2021-04-28] MEDS: Gabapentin 300 MG Capsule PO (21:13)
[2021-04-28] MEDS: 0.9% Saline Lock 10 ML Syringe IV (21:17)
[2021-04-29 02:50] VITALS: BP 118/75; PULSE 74; RESP 15; TEMP 36.6; O2SAT 97
[2021-04-29] MEDS: Phenobarbital 32.4 MG Tablet 64.8 MG PO ×6 (02:53→21:52)
[2021-04-29] MEDS: hydrOXYzine PAM 25 MG Capsule 50 MG PO ×3 (02:54→18:05)
[2021-04-29] MEDS: Gabapentin 300 MG Capsule PO ×3 (05:52→21:52)
--- NOTE | 2021-04-29 07:31 | PN.HOSP_ITS ---
Subjective Subjective Patient is a 40-year-old gentleman with history of chronic alcohol dependence admitted with acute alcohol intoxication at significant risk for withdrawal admitted to regular nursing floor where patient is currently being managed with phenobarb taper Patient has been asking constantly for Ativan did explain to patient that we should stick to phenobarb taper. Objective Data Objective Data Vital Signs: Vital Signs Temp Pulse Resp BP Pulse Ox 98 F 74 15 118/75 97 04/29/21 02:50 04/29/21 02:50 04/29/21 02:50 04/29/21 02:50 04/29/21 02:50 Oxygen Delivery Method Room Air Weight: 70.2 kg Body Mass Index (BMI) 25.0 Intake & Output: Intake and Output for Last 24 Hours 04/27/21 04/28/21 04/29/21 23:59 23:59 23:59 Intake Total 1854.17 / 1854.17 775 / 775 Balance 1854.17 / 1854.17 775 / 775 Lab / Micro Data Result Diagrams: 04/28/21 10:48 04/28/21 10:48 Labs: Laboratory Results - last 24 hr 04/28/21 04/28/21 04/28/21 10:48 10:48 10:48 WBC 7.1 RBC 5.01 Hgb 15.9 Hct 44.6 MCV 89.0 MCH 31.7 MCHC 35.7 RDW Std Deviation 49.3 H RDW Coeff of Miguel 15.3 H Plt Count 307 MPV 10.6 Immature Gran % (Auto) 0.300 Neut % (Auto) 51.8 Lymph % (Auto) 33.9 Harlan % (Auto) 12.6 H Eos % (Auto) 0.7 Baso % (Auto) 0.7 Absolute Neuts (auto) 3.7 Absolute Lymphs (auto) 2.39 Nucleated RBC % 0 Sodium 137 Potassium 3.7 Chloride 95 L Carbon Dioxide 26.0 Anion Gap 16 H BUN 6 L Creatinine 0.82 Estim Creat Clear Calc 110.22 Est GFR (MDRD) Af Amer 135 Est GFR (MDRD) Non-Af 111 BUN/Creatinine Ratio 7.3 L Glucose 108 H Calcium 9.0 Total Bilirubin 1.10 H AST 22 ALT 51 Alkaline Phosphatase 78 Total Protein 7.6 Albumin 4.2 Globulin 3.4 Albumin/Globulin Ratio 1.2 Urine Opiates Screen Urine Methadone Screen Ur Barbiturates Screen Ur Phencyclidine Scrn Ur Amphetamines Screen U Methamphetamin-MDMA U Benzodiazepines Scrn Urine Cocaine Screen U Cannabinoids Screen Ur Drug Screen Comment Ethyl Alcohol 265.0 04/28/21 11:58 WBC RBC Hgb Hct MCV MCH MCHC RDW Std Deviation RDW Coeff of Miguel Plt Count MPV Immature Gran % (Auto) Neut % (Auto) Lymph % (Auto) Harlan % (Auto) Eos % (Auto) Baso % (Auto) Absolute Neuts (auto) Absolute Lymphs (auto) Nucleated RBC % Sodium Potassium Chloride Carbon Dioxide Anion Gap BUN Creatinine Estim Creat Clear Calc Est GFR (MDRD) Af Amer Est GFR (MDRD) Non-Af BUN/Creatinine Ratio Glucose Calcium Total Bilirubin AST ALT Alkaline Phosphatase Total Protein Albumin Globulin Albumin/Globulin Ratio Urine Opiates Screen NEGATIVE Urine Methadone Screen NEGATIVE Ur Barbiturates Screen POSITIVE H Ur Phencyclidine Scrn NEGATIVE Ur Amphetamines Screen NEGATIVE U Methamphetamin-MDMA NEGATIVE U Benzodiazepines Scrn NEGATIVE Urine Cocaine Screen NEGATIVE U Cannabinoids Screen NEGATIVE Ur Drug Screen Comment Ethyl Alcohol Physical Exam Narrative GENERAL: Patient appears anxious HEENT: Atraumatic; EYES; Anicteric, Normal Conjunctiva NECK; supple, normal thyroid, RESPIRATORY: Diminished to auscultation CARDIOVASCULAR: Regular S1 S2, GI: soft, normoactive bowel sounds, : No Renal angle tenderness; EXTREMITIES: No edema, no clubbing, MUSCULOSKELETAL: no muscle waisting NEURO: Awake; no lateralizing signs. SKIN: No Rash PSYCH; Flat affect Assessment & Plan Assessment/Plan (1) Alcohol withdrawal: QUALIFIERS: Complication of substance-induced condition: with unspecified complication Qualified Code(s): F10.239 - Alcohol dependence with withdrawal, unspecified (2) Withdrawn from alcohol detoxification program: (3) Hyperbilirubinemia: (4) Tobacco abuse: (5) Acute alcohol intoxication: (6) Depression: (7) Anxiety: PLAN: Patient is a 40-year-old gentleman with history of alcohol dependence presenting with acute alcohol intoxication with desire to undergo medical stabilization 1. Acute alcohol intoxication at significant risk for alcohol withdrawal ?Patient has been admitted to regular nursing floor for medical stabilization using phenobarb. Consult was placed to case management to assist with d isposition possibly to an inpatient detox unit for long-term rehab 2. Chronic alcohol dependence ?Counseled on cessation 3. Tobacco dependence - Counseled on cessation, offered nicotine patch for tobacco cravings 4. Depression with anxiety ?Did discuss with patient and his father about the need for patient to undergo psychiatric evaluation once medically stable 5. DVT prophylaxis ?Low risk did encourage ambulation Charges/Coding Visit Charges Inpatient E&M: 96027 Subs Hosp L2
[2021-04-29] MEDS: Thiamine Hydrochloride 100 MG Tablet PO (07:55)
[2021-04-29] MEDS: Folic Acid 1 MG Tablet PO (07:55)
[2021-04-29 08:00] VITALS: PULSE 72
[2021-04-29] MEDS: Ibuprofen 600 MG Tablet PO (08:03)
--- NOTE | 2021-04-29 09:18 | ADDICTION ---
This keno writer/runner met with PT to conduct ASAM, MSE, AUDIT assessments and to plan for d/c. PT A+Ox4 and participated appropriately. All assessments completed, faxed to [facility] and placed in PT's chart. D/C plan not completed, PT requested the day to think about his options. This keno writer/runner will meet with PT to finalize d/c plan at next visit on 04/30/21. PT amiable.
[2021-04-29 09:36] VITALS: BP 119/83; PULSE 91; RESP 18; TEMP 37.2; O2SAT 100
[2021-04-29 13:48] VITALS: BP 119/80; PULSE 97; RESP 16; TEMP 37.1; O2SAT 98
--- NOTE | 2021-04-29 17:23 | CHAPLAIN ---
Type of Pastoral Visit ___ Initial Visit _x__ Follow-up Visit ___ On-call Visit ___ General Patient Visit ___ Spiritual Assessment ___ Family Conference ___ Bereavement ___ Rapid Response ___ Code Blue ___ Other (describe below) Pastoral Care Referral From _x__ Patient ___ Family ___ Nurse ___ Physician ___ Collections Clerk ___ Wastewater Design Engineer ___ Other (describe below) Sacrament/Intervention _x__ Active listening ___ Anointing ___ Anglican ___ Bereavement ___ Communion ___ Priti exploration ___ ___ Life review _x__ Prayer ___ Reconciliation ___ Sacrament of Sick _x__ Supportive presence ___ Wedding ___ Other (describe below) Pastoral Comments follow up visit to patient per his request; pt is evaluating options about follow up support at discharge; pt asked questions about priti based options in the area; prayer and supportive presence given; pt states he will make decision tomorrow when counselor from [facility] returns to see him
[2021-04-29 20:10] VITALS: BP 109/84; PULSE 95; RESP 18; TEMP 37.4; O2SAT 100
[2021-04-29] MEDS: 0.9% Saline Lock 10 ML Syringe IV (21:52)
[2021-04-30 01:54] VITALS: BP 109/72; PULSE 61; RESP 16; TEMP 37.2; O2SAT 98
[2021-04-30] MEDS: Phenobarbital 32.4 MG Tablet 64.8 MG PO ×3 (01:57→09:38)
[2021-04-30] MEDS: hydrOXYzine PAM 25 MG Capsule 50 MG PO (02:01)
[2021-04-30 05:40] VITALS: BP 101/72; PULSE 64; RESP 16; TEMP 37; O2SAT 98
[2021-04-30] MEDS: Gabapentin 300 MG Capsule PO (06:10)
[2021-04-30] MEDS: Folic Acid 1 MG Tablet PO (07:54)
[2021-04-30] MEDS: Thiamine Hydrochloride 100 MG Tablet PO (07:54)
[2021-04-30 08:05] VITALS: PULSE 96
--- NOTE | 2021-04-30 09:08 | PCM.PN.HOSP ---
Subjective Subjective Patient is less anxious compared to previous day. Objective Data Objective Data Vital Signs: Vital Signs Temp Pulse Resp BP Pulse Ox 98.6 F 96 16 101/72 98 04/30/21 05:40 04/30/21 08:05 04/30/21 05:40 04/30/21 05:40 04/30/21 05:40 Oxygen Delivery Method Room Air Weight: 70.2 kg Body Mass Index (BMI) 25.0 Intake & Output: Intake and Output for Last 24 Hours 04/28/21 04/29/21 04/30/21 23:59 23:59 23:59 Intake Total 1854.17 / 1854.17 1175 / 1175 400 / 400 Balance 1854.17 / 1854.17 1175 / 1175 400 / 400 Lab / Micro Data Result Diagrams: 04/28/21 10:48 04/28/21 10:48 Physical Exam Narrative GENERAL: Patient appears anxious HEENT: Atraumatic; EYES; Anicteric, Normal Conjunctiva NECK; supple, normal thyroid, RESPIRATORY: Diminished to auscultation CARDIOVASCULAR: Regular S1 S2, GI: soft, normoactive bowel sounds, : No Renal angle tenderness; EXTREMITIES: No edema, no clubbing, MUSCULOSKELETAL: no muscle waisting NEURO: Awake; no lateralizing signs. SKIN: No Rash PSYCH; Flat affect Assessment & Plan Assessment/Plan (1) Alcohol withdrawal: QUALIFIERS: Complication of substance-induced condition: with unspecified complication Qualified Code(s): F10.239 - Alcohol dependence with withdrawal, unspecified (2) Withdrawn from alcohol detoxification program: (3) Hyperbilirubinemia: (4) Tobacco abuse: (5) Acute alcohol intoxication: (6) Depression: (7) Anxiety: PLAN: Patient is a 40-year-old gentleman with history of alcohol dependence presenting with acute alcohol intoxication with desire to undergo medical stabilization 1. Acute alcohol intoxication at significant risk for alcohol withdrawal ?Patient has been admitted to regular nursing floor for medical stabilization using phenobarb. Consult was placed to case management to assist with disposition possibly to an inpatient detox unit for long-term rehab -04/30/2021; patient met with counseling services and currently considering options including going to a sober house on discharge 2. Chronic alcohol dependence ?Counseled on cessation 3. Tobacco dependence - Counseled on cessation, offered nicotine patch for tobacco cravings 4. Depression with anxiety ?Did discuss with patient and his father about the need for patient to undergo psychiatric evaluation once medically stable 5. DVT prophylaxis ?Low risk did encourage ambulation Charges/Coding Visit Charges Inpatient E&M: 79970 Subs Hosp L2
--- NOTE | 2021-04-30 09:49 | ADDICTION ---
This typewriter mechanic met with PT to finalize d/c plan. PT A+Ox4 and actively participated. PT to f/u with sober living, independently. PT declined coordination with treatment facilities. PT to d/c to home.
[2021-04-30 12:15] VITALS: BP 128/98; PULSE 83; RESP 18; TEMP 37.1; O2SAT 100
--- NOTE | 2021-04-30 12:28 | DS.PCM_ITS ---
Providers Date of Admission: 04/28/21 Primary Care Physician: Gillian Primary Care Phys Reason For Visit: ACUTE ALCOHOL WITHDRAWAL Diagnosis Discharge Diagnosis (1) Alcohol withdrawal: Status: Acute Code(s): F10.239 - Alcohol dependence with withdrawal, unspecified Qualifiers: Complication of substance-induced condition: with unspecified complication Qualified Code(s): F10.239 - Alcohol dependence with withdrawal, unspecified (2) Withdrawn from alcohol detoxification program: Status: Acute Code(s): Z78.9 - Other specified health status (3) Hyperbilirubinemia: Status: Acute Code(s): E80.6 - Other disorders of bilirubin metabolism (4) Tobacco abuse: Status: Chronic Code(s): Z72.0 - Tobacco use (5) Acute alcohol intoxication: Status: Acute Code(s): F10.929 - Alcohol use, unspecified with intoxication, unspecified (6) Depression: Status: Acute Code(s): F32.9 - Major depressive disorder, single episode, unspecified (7) Anxiety: Status: Chronic Code(s): F41.9 - Anxiety disorder, unspecified Medications at Discharge Home Medications NK 04/05/21 Hospital Course Summary of Care Provided Minutes Spent on Discharge: 35 Hospital Course: Patient is a 40-year-old gentleman with history of alcohol dependence presenting with acute alcohol intoxication with desire to undergo me dical stabilization 1. Acute alcohol intoxication at significant risk for alcohol withdrawal ?Patient has been admitted to regular nursing floor for medical stabilization using phenobarb. Consult was placed to case management to assist with disposition possibly to an inpatient detox unit for long-term rehab -04/30/2021; patient met with counseling services and currently considering options including going to a sober house on discharge 2. Chronic alcohol dependence ?Counseled on cessation 3. Tobacco dependence - Counseled on cessation, offered nicotine patch for tobacco cravings 4. Depression with anxiety ?Did discuss with patient and his father about the need for patient to undergo p sychiatric evaluation once medically stable 5. DVT prophylaxis ?Low risk did encourage ambulation Physical Exam Narrative GENERAL: Patient appears anxious HEENT: Atraumatic; EYES; Anicteric, Normal Conjunctiva NECK; supple, normal thyroid, RESPIRATORY: Diminished to auscultation CARDIOVASCULAR: Regular S1 S2, GI: soft, normoactive bowel sounds, : No Renal angle tenderness; EXTREMITIES: No edema, no clubbing, MUSCULOSKELETAL: no muscle waisting NEURO: Awake; no lateralizing signs. SKIN: No Rash PSYCH; Flat affect Weight / BMI Weight Weight: 70.2 kg Body Mass Index (BMI) 25.0 ABG / Lab / Microbiology Data Result Diagrams: 04/28/21 10:48 04/28/21 10:48 D/C Instructions Discharge Diet: No restrictions Discharge Activity: Return to Normal Activity Call your doctor if you observe: Fever of 101 or Higher, Shortness of breath, Fainting spells and Chest pain Meaningful Use Info Meaningful Use Diagnoses (Choose all that apply): None applicable Discharge Plan Admission Admit Date/Time: 04/28/21 11:52 Primary Reason for Your Visit: Acute alcohol withdrawal Attending Provider: Wilbert Barros Primary Care Provider: Care Physician,No Primary Discharge Orders/Prescriptions Prescriptions: No Action NK RF: 0 Referrals / Follow Up: Care Physician,No Primary [Primary Care Provider] - Disposition Disposition (needs filled in before D/C Order can be placed): Home, self care Charges/Coding Visit Charges Inpatient E&M: 02758 Disch Hosp
--- NOTE | 2021-04-30 12:30 | PCM.DC ---
Discharge Instructions Diet Discharge Diet: No restrictions Dressing / Incision Call your doctor if you observe: Fever of 101 or Higher, Shortness of breath, Fainting spells and Chest pain Follow Up Care Test Results: Test results from this visit will be discussed in further detail at your follow-up appointment, if applicable. Discharge Plan Admission Admit Date/Time: 04/28/21 11:52 Primary Reason for Your Visit: Acute alcohol withdrawal Attending Provider: Wilbert Barros Primary Care Provider: Care Physician,No Primary Discharge Orders/Prescriptions Prescriptions: No Action NK RF: 0 Referrals / Follow Up: Care Physician,No Primary [Primary Care Provider] - Disposition Disposition (needs filled in before D/C Order can be placed): Home, self care
== END 2021-04-30 12:54 | disposition home or self-care (01) | DRG 897 ==
LOC: ED 11:48 → MS3 04-29 06:55
PROVIDERS: Admitting Provider Internal Medicine; Emergency Provider Emergency Medicine; Visit Provider Internal Medicine
DX: F10.239 Alcohol dependence with withdrawal, unspecified (principal); R17 Unspecified jaundice; F10.229 Alcohol dependence with intoxication, unspecified; F41.8 Other specified anxiety disorders; F17.220 Nicotine dependence, chewing tobacco, uncomplicated; Y90.8 Blood alcohol level of 240 mg/100 ml or more
CPT/HCPCS: 80053; 80307; 82077; 85025; 93005; 96360; 96361; 99218; 99283; 99406; J7120; A4216; G0378